=== PATIENT | female | born 1955 | race Caucasian/White ===

== ENCOUNTER 2018-11-26 20:15 | Inpatient (IN) | payer OTHER ==
[~2018-11-26] VITALS: Ht 167.6 cm; Wt 144.0 kg
[~2018-11-26 20:15] MED LIST: ATOR20TA38 PO; DULO30CA47 PO; ERGO500013 PO; INSU100I12 SQ; LISI10TA2 PO; LYRI100 PO; THY90 PO
[2018-11-26 20:23] VITALS: Ht 167.6 cm; Wt 144.0 kg
[2018-11-27] MEDS ORDERED: morphine 2 MG INJ IV PRN (02:00)
[2018-11-27] MEDS ORDERED: ONDANSETRON 4 MG INJ IV PRN (02:00)
[2018-11-27] MEDS ORDERED: NACL 0.9% 3 ML SYG IV SCH (02:00)
[2018-11-27] MEDS ORDERED: VANCOMYCIN IV PER PHARMACY XX SCH (02:30)
[2018-11-27] MEDS ORDERED: DEXTROSE 50% 50 ML SYRINGE IV PRN ×2 (02:30)
[2018-11-27] MEDS ORDERED: GLUCOSE GEL 15 GRAM TUBE PO PRN ×2 (02:30)
[2018-11-27] MEDS ORDERED: LABETALOL HCL 20MG INJ IV PRN (02:30)
[2018-11-27] MEDS ORDERED: GLUCAGON 1 MG INJ IM PRN (02:30)
[2018-11-27] MEDS ORDERED: GLUCOSE GEL 15 GRAM TUBE BUCCAL PRN (02:30)
[2018-11-27] MEDS: DEXTROSE 5%-0.45% NACL 1,000 ML IV SCH ×4 (02:31→21:59)
[2018-11-27] MEDS ORDERED: PIPER-TAZO 3.375 GM IV (PMX) 100 ML IVPB SCH (02:31)
--- NOTE | 2018-11-27 02:32 | HP ---
Date/Time of Note Date/Time of Note DATE: 11/27/18 TIME: 02:32 Assessment/Plan VTE Prophylaxis Pharmacological prophylaxis: other Lines/Catheters IV Catheter Type (from Nrs): Saline Lock Assessment/Plan Hospital Course Objective Physical exam General: Patient is laying in bed and answers questions appropriately Mentation: Patient is alert and oriented 4, Head: Normocephalic atraumatic Eyes: EOMI, pupils reactive to light Neck: Supple, nontender, midline Respiratory: Clear to auscultation bilaterally Cardiovascular: regular rate, no obvious murmurs Gastrointestinal: non-tender to palpation, bowel sounds heard. Neurological: Moves all extremities spontaneously Skin: Foot bandaged Assessment and plan Left foot bunion -Read correction surgery scheduled for tomorrow per podiatry, Dr. Calvo -IV fluid -N.p.o. for surgery Leukocytosis -Possibly reactive, -Monitor for now, start antibiotics if signs of infection arise, no fever Hypothyroidism -Patient on [place], spoke with pharmacy, IV Synthroid dose obtained Hypertension -As needed medications while n.p.o. Diabetes mellitus -Insulin sliding scale Disposition -Awaiting surgery in the a.m. per podiatry Result Diagram: 11/27/18 0130 11/27/18 0130 Results 24hrs Laboratory Tests Test 11/27/18 01:30 White Blood Count 15.8 H Red Blood Count 5.29 Hemoglobin 13.9 Hematocrit 45.2 Mean Corpuscular Volume 85.4 Mean Corpuscular Hemoglobin 26.3 L Mean Corpuscular Hemoglobin Concent 30.8 L Red Cell Distribution Width 15.7 H Platelet Count 348 Mean Platelet Volume 11.7 H Immature Granulocytes % 0.700 H Neutrophils % 66.5 Lymphocytes % 24.1 Monocytes % 5.8 Eosinophils % 2.3 Basophils % 0.6 Nucleated Red Blood Cells % 0.0 Immature Granulocytes # 0.110 H Neutrophils # 10.5 H Lymphocytes # 3.8 H Monocytes # 0.9 Eosinophils # 0.4 Basophils # 0.1 Nucleated Red Blood Cells # 0.0 Prothrombin Time 12.1 Prothrombin Time Ratio 0.9 INR International Normalized Ratio 0.89 Activated Partial Thromboplast Time 27.0 Sodium Level 141 Potassium Level 4.2 Chloride Level 102 Carbon Dioxide Level 27 Anion Gap 12 Blood Urea Nitrogen 16 Creatinine 0.61 Est Glomerular Filtrat Rate mL/min > 60 Glucose Level 160 Calcium Level 9.8 Total Bilirubin 0.5 Direct Bilirubin 0.00 Indirect Bilirubin 0.5 Aspartate Amino Transf (AST/SGOT) 19 Alanine Aminotransferase (ALT/SGPT) 7 L Alkaline Phosphatase 133 H Total Protein 7.3 Albumin 4.0 Globulin 3.30 H Albumin/Globulin Ratio 1.21 Lipase 73 HPI/ROS Admit Date/Time Admit Date/Time Hx of Present Illness Patient is a female with past medical history significant for diabetes mellitus, hypothyroidism, dyslipidemia, hypertension, bunion on the foot presents to [facility] after being sent by a engraving plate maker for surgery tomorrow morning. Patient had bunion surgery approximately 1 week ago with screws and had a normal follow-up appointment at her engraving plate maker's office, according to the patient the engraving plate maker saw that there was a slippage in 1 of the screws or other hardware and wanted her to be admitted in order for him to provide surgery early in the morning. Patient has no other acute complaints and states that the engraving plate maker stated that it did not look infected. Patient currently denies chest pain, shortness of breath, headache, nausea, vomiting, abdominal pain, leg pain PMH/Family/Social Past Medical History Medications Current Medications Dextrose/Sodium Chloride 1,000 ml @ 150 mls/hr Q6H40M IV Last administered on 11/27/18at 02:31; Admin Dose 150 MLS/HR; Start 11/27/18 at 01:59 IV Flush (NS 3 ml) 3 ml PER PROTOCOL IV ; Start 11/27/18 at 02:00 Ondansetron HCl (Zofran Inj) 4 mg Q6H PRN IV NAUSEA/VOMITING; Start 11/27/18 at 02:00 Morphine Sulfate (morphine) 2 mg Q4H PRN IV .PAIN 7-10; Start 11/27/18 at 02:00 Pantoprazole (Protonix Iv) 40 mg DAILY@06 IV ; Start 11/27/18 at 06:00 Diagnostic Test (Pha) (Accu-Chek) 1 ea 02 XX ; Start 11/28/18 at 02:00 Insulin Aspart (Novolog Insulin Pen) NOVOLOG *MILD* ALGORITHM Q6 SC ; Start 11/27/18 at 06:00 Labetalol HCl (Labetalol) 10 mg Q4 PRN IV sbp >160; Start 2/14/19 at 02:30 Miscellaneous Information 1 ea NOTE XX ; Start 11/27/18 at 02:30 Glucose (Glutose) 15 gm Q15M PRN PO DECREASED GLUCOSE; Start 11/27/18 at 02:30 Glucose (Glutose) 22.5 gm Q15M PRN PO DECREASED GLUCOSE; Start 11/27/18 at 02:30 Dextrose (D50w Syringe) 25 ml Q15M PRN IV DECREASED GLUCOSE; Start 11/27/18 at 02:30 Dextrose (D50w Syringe) 50 ml Q15M PRN IV DECREASED GLUCOSE; Start 11/27/18 at 02:30 Glucagon (Glucagen) 1 mg Q15M PRN IM DECREASED GLUCOSE; Start 11/27/18 at 02:30 Glucose (Glutose) 15 gm Q15M PRN BUCCAL DECREASED GLUCOSE; Start 11/27/18 at 02:30 Levothyroxine Sodium (Synthroid Iv) 75 mcg DAILY@06 IV ; Start 11/27/18 at 06:00 Coded Allergies: No Known Allergy (Unverified , 11/19/18) Social History Smoking Status: Current some day smoker Exam/Review of Systems Vital Signs Vitals Vital Signs Date Temp Pulse Resp B/P (MAP) Pulse Ox O2 O2 Flow FiO2 Time Delivery Rate 11/27/18 72 14 128/95 100 Room Air 01:15 (106) 11/26/18 97.3 20:23 LENIN RADFORD Nov 27, 2018 02:32
--- NOTE | 2018-11-27 02:53 | ERD ---
ER Documentation Chief Complaint Chief Complaint SENT BY JIGAR FOR LEFT FOOT SX, SX SCHEDULE TOMORROW AM HPI This is a very pleasant female sent by Dr. Oh for left foot surgery. Scheduled surgery tomorrow in the morning. Denies fevers chills nausea vomiting. She is status post previous surgery 8 days ago. This is likely s econdary to need for revision. ROS All systems reviewed and are negative except as per history of present illness. Medications Home Meds Reported Medications Insulin Lispro (Humalog Kwikpen U-100) 100 Unit/1 Ml Insuln.pen, 25 UNIT SQ AC A, EA 11/19/18 Ergocalciferol (Vitamin D2) (VITAMIN D2) 50,000 Unit Capsule, 59068 UNIT PO EVERY SATURDAY, CAP 11/19/18 Duloxetine Hcl* (Duloxetine Hcl*) 30 Mg Capsule.dr, 30 MG PO DAILY, #30 CAP 11/19/18 Pregabalin* (Lyrica*) 100 Mg Capsule, 100 MG PO BID, CAP 11/19/18 Thyroid* ([place] Thyroid*) 90 Mg Tablet, 90 MG PO DAILY, TAB 11/19/18 Atorvastatin Calcium* (Atorvastatin Calcium*) 20 Mg Tablet, 20 MG PO QHS, #30 TAB 11/19/18 Lisinopril* (Lisinopril*) 10 Mg Tablet, 10 MG PO DAILY, #30 TAB 11/19/18 Allergies Allergies: Coded Allergies: No Known Allergy (Unverified , 11/27/18) PMhx/Soc History of Surgery: Yes (r. bunionectomy,estuardo) Anesthesia Reaction: No Hx Neurological Disorder: No Hx Respiratory Disorders: No Hx Cardiac Disorders: Yes (htn,high chol) Hx Psychiatric Problems: No Hx Miscellaneous Medical Probl: No Hx Alcohol Use: No Hx Substance Use: No Hx Tobacco Use: Yes Smoking Status: Current some day smoker Physical Exam Vitals Vital Signs Date Temp Pulse Resp B/P (MAP) Pulse Ox O2 O2 Flow FiO2 Time Delivery Rate 11/27/18 72 14 128/95 100 Room Air 01:15 (106) 11/26/18 97.3 104 22 158/70 97 20:23 (99) Physical Exam Const: No acute distress Head: Atraumatic Eyes: Normal Conjunctiva ENT: Normal External Ears, Nose and Mouth. Neck: Full range of motion. No meningismus. Resp: Clear to auscultation bilaterally Cardio: Regular rate and rhythm, no murmurs Abd: Soft, non tender, non distended. Normal bowel sounds Skin: No petechiae or rashes Back: No midline or flank tenderness Ext: No cyanosis, or edema Neur: Awake and alert Psych: Normal Mood and Affect Result Diagram: 11/27/18 01311/27/18 0130 Results 24 hrs Laboratory Tests Test 11/27/18 01:30 White Blood Count 15.8 10^3/ul Red Blood Count 5.29 10^6/ul Hemoglobin 13.9 g/dl Hematocrit 45.2 % Mean Corpuscular Volume 85.4 fl Mean Corpuscular Hemoglobin 26.3 pg Mean Corpuscular Hemoglobin Concent 30.8 g/dl Red Cell Distribution Width 15.7 % Platelet Count 348 10^3/UL Mean Platelet Volume 11.7 fl Immature Granulocytes % 0.700 % Neutrophils % 66.5 % Lymphocytes % 24.1 % Monocytes % 5.8 % Eosinophils % 2.3 % Basophils % 0.6 % Nucleated Red Blood Cells % 0.0 /100WBC Immature Granulocytes # 0.110 10^3/ul Neutrophils # 10.5 10^3/ul Lymphocytes # 3.8 10^3/ul Monocytes # 0.9 10^3/ul Eosinophils # 0.4 10^3/ul Basophils # 0.1 10^3/ul Nucleated Red Blood Cells # 0.0 10^3/ul Prothrombin Time 12.1 Sec Prothrombin Time Ratio 0.9 INR International Normalized Ratio 0.89 Activated Partial Thromboplast Time 27.0 Sec Sodium Level 141 mmol/L Potassium Level 4.2 mmol/L Chloride Level 102 mmol/L Carbon Dioxide Level 27 mmol/L Anion Gap 12 Blood Urea Nitrogen 16 mg/dl Creatinine 0.61 mg/dl Est Glomerular Filtrat Rate mL/min > 60 mL/min Glucose Level 160 mg/dl Calcium Level 9.8 mg/dl Total Bilirubin 0.5 mg/dl Direct Bilirubin 0.00 mg/dl Indirect Bilirubin 0.5 mg/dl Aspartate Amino Transf (AST/SGOT) 19 IU/L Alanine Aminotransferase (ALT/SGPT) 7 IU/L Alkaline Phosphatase 133 IU/L Total Protein 7.3 g/dl Albumin 4.0 g/dl Globulin 3.30 g/dl Albumin/Globulin Ratio 1.21 Lipase 73 U/L Current Medications Medications Dose Sig/Crystal Start Time Status Last (Trade) Ordered Route PRN Stop Time Admin Dose Reason Admin 1,000 ml @ Q6H40M IV 11/27/18 11/27/18 Dextrose/Sodi 150 mls/hr 01:59 02:31 um Chloride IV Flush 3 ml PER 11/27/18 (NS 3 ml) PROTOCOL IV 02:00 Ondansetron 4 mg Q6H PRN 11/27/18 HCl (Zofran IV 02:00 Inj) NAUSEA/VOMITI NG Morphine 2 mg Q4H PRN 11/27/18 Sulfate IV .PAIN 02:00 (morphine) 7-10 40 mg DAILY@06 11/27/18 Pantoprazole IV 06:00 (Protonix Iv) Discontinue ONCE ONCE 11/27/18 DC Miscellaneous current oral XX 02:30 sulfonylur... 11/27/18 02:31 Information (* Miscellaneous Pharmacy Order) Diagnostic 1 ea 02 XX 11/28/18 Test (Pha) 02:00 (Accu-Chek) ONCE ONCE 11/27/18 DC Miscellaneous HYPOGLYCEMIA XX 02:30 PROTOCOL 11/27/18 02:31 Information w... (* Miscellaneous Pharmacy Order) Insulin NOVOLOG Q6 SC 11/27/18 Aspart *MILD* 06:00 (Novolog ALGORITHM Insulin Pen) Discontinue ONCE ONCE 11/27/18 DC Miscellaneous all previ... XX 02:30 11/27/18 02:31 Information (* Miscellaneous Pharmacy Order) Labetalol 10 mg Q4 PRN IV 11/27/18 HCl sbp >160 02:30 (Labetalol) Piperacillin 100 ml @ Q6 IVPB 11/27/18 DC Sod/ 200 mls/hr 02:31 Tazobactam 11/27/18 02:31 Sod Vancomycin VANCOMYCIN PER 11/27/18 DC HCl (Vanco PER PHARMACY PROTOCOL XX 02:30 Iv Per 11/27/18 02:30 Pharmacy) 1 ea NOTE XX 11/27/18 Miscellaneous 02:30 Information Glucose 15 gm Q15M PRN 11/27/18 (Glutose) PO DECREASED 02:30 GLUCOSE Glucose 22.5 gm Q15M PRN 11/27/18 (Glutose) PO DECREASED 02:30 GLUCOSE Dextrose 25 ml Q15M PRN 11/27/18 (D50w IV DECREASED 02:30 Syringe) GLUCOSE Dextrose 50 ml Q15M PRN 11/27/18 (D50w IV DECREASED 02:30 Syringe) GLUCOSE Glucagon 1 mg Q15M PRN 11/27/18 (Glucagen) IM DECREASED 02:30 GLUCOSE Glucose 15 gm Q15M PRN 11/27/18 (Glutose) BUCCAL 02:30 DECREASED GLUCOSE Vancomycin 500 ml @ ONCE ONCE 11/27/18 DC HCl 2 125 mls/hr IVPB 03:30 gm/Sodium 11/27/18 03:30 Chloride 75 mcg DAILY@06 11/27/18 Levothyroxine IV 06:00 Sodium (Synthroid Iv) Procedures/MDM Medical decision making: Patient here for possible surgical reevaluation of previous foot surgery. Admitted to hospitalist. Departure Diagnosis: Primary Impression: Foot pain Laterality: unspecified laterality Qualified Codes: M79.673 - Pain in unspecified foot Condition: Fair LUZ ELENA NAVARRO Nov 27, 2018 02:53
[2018-11-27 03:00] VITALS: BP 122/58; PULSE 76; RESP 19
[2018-11-27] MEDS ORDERED: VANCOMYCIN HCL 2 GM in SOD CHLORIDE 0.9% 500 ML IVPB ONE (03:30)
[2018-11-27] MEDS ORDERED: PANTOPRAZOLE 40 MG INJ IV SCH (06:00)
[2018-11-27] MEDS: LEVOTHYROXINE 100 MCG VIAL IV SCH (06:36)
[2018-11-27] MEDS: INSULIN ASPART [NOVOLOG] 3 ML PEN SC SCH ×3 (06:42→17:51)
[2018-11-27 07:33] VITALS: BP 146/81; PULSE 75; RESP 18
[2018-11-27 14:49] VITALS: BP 155/95; PULSE 82; RESP 20
--- NOTE | 2018-11-27 18:36 | PN ---
Date/Time of Note Date/Time of Note DATE: 11/27/18 TIME: 18:31 Assessment/Plan VTE Prophylaxis Risk score (from Ns)>0 risk: 5 SCD applied (from Ns): Yes SCD contraindicated: low risk/ambulating Pharmacological prophylaxis: NA/contraindicated Pharm contraindication: surgical contra Lines/Catheters IV [facility] Peripheral IV Assessment/Plan Hospital Course Assessment and plan 1. Left foot cellulitis abscess? Stable cont antibiotics 2. Left foot bunion, apparently the bones have shifted. For repair/hardware replacement soon 3. Type 2 diabetes metabolic syndrome 4. Hypertension 5. Dyslipidemia 6. Tobacco abuse status post counseling offered patch 7. PAD? 8. Diabetic neuropathy 9. ELVI risk? 10. Obesity 11. Nonadherence Subjective: No events noted Objective: Vital signs stable Physical exam No pallor Regular Clear Benign Left foot c/d/i Result Diagram: 11/27/1812911/27/18129 Results 24hrs Laboratory Tests Test 11/27/18 01:30 11/27/18 06:30 11/27/18 12:11 11/27/18 17:48 White Blood Count 15.8 H Red Blood Count 5.29 Hemoglobin 13.9 Hematocrit 45.2 Mean Corpuscular 85.4 Volume Mean Corpuscular 26.3 L Hemoglobin Mean Corpuscular 30.8 L Hemoglobin Concent Red Cell 15.7 H Distribution Width Platelet Count 348 Mean Platelet Volume 11.7 H Immature 0.700 H Granulocytes % Neutrophils % 66.5 Lymphocytes % 24.1 Monocytes % 5.8 Eosinophils % 2.3 Basophils % 0.6 Nucleated Red Blood 0.0 Cells % Immature 0.110 H Granulocytes # Neutrophils # 10.5 H Lymphocytes # 3.8 H Monocytes # 0.9 Eosinophils # 0.4 Basophils # 0.1 Nucleated Red Blood 0.0 Cells # Prothrombin Time 12.1 Prothrombin Time 0.9 Ratio INR International 0.89 Normalized Ratio Activated 27.0 Partial Thromboplast Time Sodium Level 141 Potassium Level 4.2 Chloride Level 102 Carbon Dioxide Level 27 Anion Gap 12 Blood Urea Nitrogen 16 Creatinine 0.61 Est Glomerular > 60 Filtrat Rate mL/min Glucose Level 160 Calcium Level 9.8 Total Bilirubin 0.5 Direct Bilirubin 0.00 Indirect Bilirubin 0.5 Aspartate Amino 19 Transf (AST/SGOT) Alanine 7 L Aminotransferase (AL T/SGPT) Alkaline Phosphatase 133 H Total Protein 7.3 Albumin 4.0 Globulin 3.30 H Albumin/Globulin 1.21 Ratio Lipase 73 Bedside Glucose 193 206 167 Exam/Review of Systems Exam Vitals Vital Signs Date Temp Pulse Resp B/P (MAP) Pulse Ox O2 O2 Flow FiO2 Time Delivery Rate 11/27/18 98.6 82 20 155/95 94 Room Air 14:49 (115) Results Results 24hrs Laboratory Tests Test 11/27/18 01:30 11/27/18 06:30 11/27/18 12:11 11/27/18 17:48 White Blood Count 15.8 H Red Blood Count 5.29 Hemoglobin 13.9 Hematocrit 45.2 Mean Corpuscular 85.4 Volume Mean Corpuscular 26.3 L Hemoglobin Mean Corpuscular 30.8 L Hemoglobin Concent Red Cell 15.7 H Distribution Width Platelet Count 348 Mean Platelet Volume 11.7 H Immature 0.700 H Granulocytes % Neutrophils % 66.5 Lymphocytes % 24.1 Monocytes % 5.8 Eosinophils % 2.3 Basophils % 0.6 Nucleated Red Blood 0.0 Cells % Immature 0.110 H Granulocytes # Neutrophils # 10.5 H Lymphocytes # 3.8 H Monocytes # 0.9 Eosinophils # 0.4 Basophils # 0.1 Nucleated Red Blood 0.0 Cells # Prothrombin Time 12.1 Prothrombin Time 0.9 Ratio INR International 0.89 Normalized Ratio Activated 27.0 Partial Thromboplast Time Sodium Level 141 Potassium Level 4.2 Chloride Level 102 Carbon Dioxide Level 27 Anion Gap 12 Blood Urea Nitrogen 16 Creatinine 0.61 Est Glomerular > 60 Filtrat Rate mL/min Glucose Level 160 Calcium Level 9.8 Total Bilirubin 0.5 Direct Bilirubin 0.00 Indirect Bilirubin 0.5 Aspartate Amino 19 Transf (AST/SGOT) Alanine 7 L Aminotransferase (AL T/SGPT) Alkaline Phosphatase 133 H Total Protein 7.3 Albumin 4.0 Globulin 3.30 H Albumin/Globulin 1.21 Ratio Lipase 73 Bedside Glucose 193 206 167 Medications Medication Current Medications Dextrose/Sodium Chloride 1,000 ml @ 150 mls/hr Q6H40M IV Last administered on 11/27/18at 09:35; Admin Dose 150 MLS/HR; Start 11/27/18 at 01:59 IV Flush (NS 3 ml) 3 ml PER PROTOCOL IV ; Start 11/27/18 at 02:00 Ondansetron HCl (Zofran Inj) 4 mg Q6H PRN IV NAUSEA/VOMITING; Start 11/27/18 at 02:00 Morphine Sulfate (morphine) 2 mg Q4H PRN IV .PAIN 7-10; Start 11/27/18 at 02:00 Pantoprazole (Protonix Iv) 40 mg DAILY@06 IV Last administered on 11/27/18at 06:36; Admin Dose 40 MG; Start 11/27/18 at 06:00 Diagnostic Test (Pha) (Accu-Chek) 1 ea 02 XX ; Start 11/28/18 at 02:00 Insulin Aspart (Novolog Insulin Pen) NOVOLOG *MILD* ALGORITHM Q6 SC Last administered on 11/27/18at 17:51; Admin Dose 1 UNIT; Start 11/27/18 at 06:00 Miscellaneous Information 1 ea NOTE XX ; Start 11/27/18 at 02:30 Glucose (Glutose) 15 gm Q15M PRN PO DECREASED GLUCOSE; Start 11/27/18 at 02:30 Glucose (Glutose) 22.5 gm Q15M PRN PO DECREASED GLUCOSE; Start 11/27/18 at 02:30 Dextrose (D50w Syringe) 25 ml Q15M PRN IV DECREASED GLUCOSE; Start 11/27/18 at 02:30 Dextrose (D50w Syringe) 50 ml Q15M PRN IV DECREASED GLUCOSE; Start 11/27/18 at 02:30 Glucagon (Glucagen) 1 mg Q15M PRN IM DECREASED GLUCOSE; Start 11/27/18 at 02:30 Glucose (Glutose) 15 gm Q15M PRN BUCCAL DECREASED GLUCOSE; Start 11/27/18 at 02:30 Levothyroxine Sodium (Synthroid Iv) 75 mcg DAILY@06 IV Last administered on 11/27/18at 06:36; Admin Dose 75 MCG; Start 11/27/18 at 06:00 LOC CONCEPCION MD Nov 27, 2018 18:36
[2018-11-27 20:30] VITALS: BP 168/92; PULSE 76; RESP 19
[2018-11-27] MEDS: FAMOTIDINE 20 MG TAB PO SCH (21:15)
[2018-11-27] MEDS: LACTOBACILLUS RHAMNOSUS CAP PO SCH (21:15)
[2018-11-27] MEDS: PIPER-TAZO 3.375 GM IV (PMX) 100 ML IVPB SCH (21:16)
--- NOTE | 2018-11-27 22:14 | CONS ---
Consultation Date/Type/Reason Admit Date/Time Date of Consultation: Nov 27, 2018 Date/Time of Note DATE: 11/27/18 TIME: 22:14 Past Medical History Home Meds Reported Medications Insulin Lispro (Humalog Kwikpen U-100) 100 Unit/1 Ml Insuln.pen, 25 UNIT SQ AC A, EA 11/19/18 Ergocalciferol (Vitamin D2) (VITAMIN D2) 50,000 Unit Capsule, 47751 UNIT PO EVERY SATURDAY, CAP 11/19/18 Duloxetine Hcl* (Duloxetine Hcl*) 30 Mg Capsule.dr, 30 MG PO DAILY, #30 CAP 11/19/18 Pregabalin* (Lyrica*) 100 Mg Capsule, 100 MG PO BID, CAP 11/19/18 Thyroid* ([place] Thyroid*) 90 Mg Tablet, 90 MG PO DAILY, TAB 11/19/18 Atorvastatin Calcium* (Atorvastatin Calcium*) 20 Mg Tablet, 20 MG PO QHS, #30 TAB 11/19/18 Lisinopril* (Lisinopril*) 10 Mg Tablet, 10 MG PO DAILY, #30 TAB 11/19/18 Medications Current Medications Dextrose/Sodium Chloride 1,000 ml @ 150 mls/hr Q6H40M IV Last administered on 11/27/18at 09:35; Admin Dose 150 MLS/HR; Start 11/27/18 at 01:59 IV Flush (NS 3 ml) 3 ml PER PROTOCOL IV ; Start 11/27/18 at 02:00 Ondansetron HCl (Zofran Inj) 4 mg Q6H PRN IV NAUSEA/VOMITING; Start 11/27/18 at 02:00 Morphine Sulfate (morphine) 2 mg Q4H PRN IV .PAIN 7-10 Last administered on 11/27/18at 21:21; Admin Dose 2 MG; Start 11/27/18 at 02:00 Diagnostic Test (Pha) (Accu-Chek) 1 ea 02 XX ; Start 11/28/18 at 02:00 Insulin Aspart (Novolog Insulin Pen) NOVOLOG *MILD* ALGORITHM Q6 SC Last administered on 11/27/18at 17:51; Admin Dose 1 UNIT; Start 11/27/18 at 06:00 Miscellaneous Information 1 ea NOTE XX ; Start 11/27/18 at 02:30 Glucose (Glutose) 15 gm Q15M PRN PO DECREASED GLUCOSE; Start 11/27/18 at 02:30 Glucose (Glutose) 22.5 gm Q15M PRN PO DECREASED GLUCOSE; Start 11/27/18 at 02:30 Dextrose (D50w Syringe) 25 ml Q15M PRN IV DECREASED GLUCOSE; Start 11/27/18 at 02:30 Dextrose (D50w Syringe) 50 ml Q15M PRN IV DECREASED GLUCOSE; Start 11/27/18 at 02:30 Glucagon (Glucagen) 1 mg Q15M PRN IM DECREASED GLUCOSE; Start 11/27/18 at 02:30 Glucose (Glutose) 15 gm Q15M PRN BUCCAL DECREASED GLUCOSE; Start 11/27/18 at 02:30 Levothyroxine Sodium (Synthroid Iv) 75 mcg DAILY@06 IV Last administered on 11/27/18at 06:36; Admin Dose 75 MCG; Start 11/27/18 at 06:00 Piperacillin Sod/ Tazobactam Sod 100 ml @ 200 mls/hr Q8 IVPB Last administered on 11/27/18at 21:16; Admin Dose 200 MLS/HR; Start 11/27/18 at 22:00 Enoxaparin Sodium (Lovenox) 40 mg DAILY SC ; Start 11/28/18 at 09:00 Famotidine (Pepcid) 20 mg HS PO Last administered on 11/27/18at 21:15; Admin Dose 20 MG; Start 11/27/18 at 21:00 Lactobacillus Acidophilus/ Rhamnosus (Culturelle) 1 cap BID PO Last administered on 11/27/18at 21:15; Admin Dose 1 CAP; Start 11/27/18 at 21:00 Atorvastatin Calcium (Lipitor) 20 mg QHS PO ; Start 11/28/18 at 21:00 Duloxetine HCl (Cymbalta) 30 mg DAILY PO ; Start 11/28/18 at 09:00 Pregabalin (Lyrica) 100 mg DAILY PO ; Start 11/28/18 at 09:00 Lisinopril (Zestril) 10 mg DAILY PO ; Start 11/27/18 at 22:30 Allergies: Coded Allergies: No Known Allergy (Unverified , 11/27/18) Social History Smoking Status: Current some day smoker Exam/Review of Systems Exam Vitals Vital Signs Date Temp Pulse Resp B/P (MAP) Pulse Ox O2 O2 Flow FiO2 Time Delivery Rate 11/27/18 99.0 76 19 168/92 95 20:30 (117) 11/27/18 Room Air 14:49 Results Result Diagram: 11/27/18 0130 11/27/18 0130 Results 24hrs Laboratory Tests Test 11/27/18 01:30 11/27/18 06:30 11/27/18 12:11 11/27/18 17:48 White Blood Count 15.8 H Red Blood Count 5.29 Hemoglobin 13.9 Hematocrit 45.2 Mean Corpuscular 85.4 Volume Mean Corpuscular 26.3 L Hemoglobin Mean Corpuscular 30.8 L Hemoglobin Concent Red Cell 15.7 H Distribution Width Platelet Count 348 Mean Platelet Volume 11.7 H Immature 0.700 H Granulocytes % Neutrophils % 66.5 Lymphocytes % 24.1 Monocytes % 5.8 Eosinophils % 2.3 Basophils % 0.6 Nucleated Red Blood 0.0 Cells % Immature 0.110 H Granulocytes # Neutrophils # 10.5 H Lymphocytes # 3.8 H Monocytes # 0.9 Eosinophils # 0.4 Basophils # 0.1 Nucleated Red Blood 0.0 Cells # Prothrombin Time 12.1 Prothrombin Time 0.9 Ratio INR International 0.89 Normalized Ratio Activated 27.0 Partial Thromboplast Time Sodium Level 141 Potassium Level 4.2 Chloride Level 102 Carbon Dioxide Level 27 Anion Gap 12 Blood Urea Nitrogen 16 Creatinine 0.61 Est Glomerular > 60 Filtrat Rate mL/min Glucose Level 160 Calcium Level 9.8 Total Bilirubin 0.5 Direct Bilirubin 0.00 Indirect Bilirubin 0.5 Aspartate Amino 19 Transf (AST/SGOT) Alanine 7 L Aminotransferase (AL T/SGPT) Alkaline Phosphatase 133 H Total Protein 7.3 Albumin 4.0 Globulin 3.30 H Albumin/Globulin 1.21 Ratio Lipase 73 Bedside Glucose 193 206 167 Medications Medication Current Medications Dextrose/Sodium Chloride 1,000 ml @ 150 mls/hr Q6H40M IV Last administered on 11/27/18at 09:35; Admin Dose 150 MLS/HR; Start 11/27/18 at 01:59 IV Flush (NS 3 ml) 3 ml PER PROTOCOL IV ; Start 11/27/18 at 02:00 Ondansetron HCl (Zofran Inj) 4 mg Q6H PRN IV NAUSEA/VOMITING; Start 11/27/18 at 02:00 Morphine Sulfate (morphine) 2 mg Q4H PRN IV .PAIN 7-10 Last administered on 11/27/18at 21:21; Admin Dose 2 MG; Start 11/27/18 at 02:00 Diagnostic Test (Pha) (Accu-Chek) 1 ea 02 XX ; Start 11/28/18 at 02:00 Insulin Aspart (Novolog Insulin Pen) NOVOLOG *MILD* ALGORITHM Q6 SC Last administered on 11/27/18at 17:51; Admin Dose 1 UNIT; Start 11/27/18 at 06:00 Miscellaneous Information 1 ea NOTE XX ; Start 11/27/18 at 02:30 Glucose (Glutose) 15 gm Q15M PRN PO DECREASED GLUCOSE; Start 11/27/18 at 02:30 Glucose (Glutose) 22.5 gm Q15M PRN PO DECREASED GLUCOSE; Start 11/27/18 at 02:30 Dextrose (D50w Syringe) 25 ml Q15M PRN IV DECREASED GLUCOSE; Start 11/27/18 at 02:30 Dextrose (D50w Syringe) 50 ml Q15M PRN IV DECREASED GLUCOSE; Start 11/27/18 at 02:30 Glucagon (Glucagen) 1 mg Q15M PRN IM DECREASED GLUCOSE; Start 11/27/18 at 02:30 Glucose (Glutose) 15 gm Q15M PRN BUCCAL DECREASED GLUCOSE; Start 11/27/18 at 02:30 Levothyroxine Sodium (Synthroid Iv) 75 mcg DAILY@06 IV Last administered on 11/27/18at 06:36; Admin Dose 75 MCG; Start 11/27/18 at 06:00 Piperacillin Sod/ Tazobactam Sod 100 ml @ 200 mls/hr Q8 IVPB Last administered on 11/27/18at 21:16; Admin Dose 200 MLS/HR; Start 11/27/18 at 22:00 Enoxaparin Sodium (Lovenox) 40 mg DAILY SC ; Start 11/28/18 at 09:00 Famotidine (Pepcid) 20 mg HS PO Last administered on 11/27/18at 21:15; Admin Dose 20 MG; Start 11/27/18 at 21:00 Lactobacillus Acidophilus/ Rhamnosus (Culturelle) 1 cap BID PO Last administered on 11/27/18at 21:15; Admin Dose 1 CAP; Start 11/27/18 at 21:00 Atorvastatin Calcium (Lipitor) 20 mg QHS PO ; Start 11/28/18 at 21:00 Duloxetine HCl (Cymbalta) 30 mg DAILY PO ; Start 11/28/18 at 09:00 Pregabalin (Lyrica) 100 mg DAILY PO ; Start 11/28/18 at 09:00 Lisinopril (Zestril) 10 mg DAILY PO ; Start 11/27/18 at 22:30 DEANNA KIMBALL DPM Nov 27, 2018 22:14
[2018-11-27] MEDS: LISINOPRIL 10 MG TAB PO SCH (22:23)
[2018-11-28] VITALS (18 sets, daily range): BP systolic 81–180; BP diastolic 54–72; PULSE 61–78; RESP 12–21
[2018-11-28] MEDS: INSULIN ASPART [NOVOLOG] 3 ML PEN SC SCH ×6 (00:04→21:43)
[2018-11-28] MEDS ORDERED: hydrALAzine 20 MG INJ IV PRN ×2 (02:00→16:00)
[2018-11-28] MEDS: ACCU-CHEK XX SCH (02:00)
[2018-11-28] MEDS ORDERED: HYDROCORTISONE 2.5% 20 GM CR TOP PRN (02:00)
[2018-11-28] MEDS: DIPHENHYDRAMINE 25 MG CAP PO PRN ×3 (04:46→21:24)
[2018-11-28] MEDS: PIPER-TAZO 3.375 GM IV (PMX) 100 ML IVPB SCH ×3 (05:54→21:36)
[2018-11-28] MEDS: LEVOTHYROXINE 100 MCG VIAL IV SCH (05:54)
[2018-11-28] MEDS: DEXTROSE 5%-0.45% NACL 1,000 ML IV SCH ×2 (05:55→11:19)
[2018-11-28] MEDS ORDERED: CEFAZOLIN 1 GM INJ ONE ×2 (07:00→16:05)
[2018-11-28] MEDS: LISINOPRIL 10 MG TAB PO SCH (08:59)
[2018-11-28] MEDS: DULOXETINE 30 MG CAP DR PO SCH (08:59)
[2018-11-28] MEDS: LACTOBACILLUS RHAMNOSUS CAP PO SCH ×2 (08:59→21:24)
[2018-11-28] MEDS: PREGABALIN 100 MG CAP PO SCH (09:00)
[2018-11-28] MEDS ORDERED: LISINOPRIL 10 MG TAB PO SCH (09:00)
[2018-11-28] MEDS: ENOXAPARIN 40 MG/0.4 ML SYG SC SCH (09:00)
--- NOTE | 2018-11-28 13:29 | PN ---
Date/Time of Note Date/Time of Note DATE: 11/28/18 TIME: 13:28 Assessment/Plan VTE Prophylaxis Risk score (from Nsg)>0 risk: 3 SCD applied (from Ns): Yes SCD contraindicated: low risk/ambulating Pharmacological prophylaxis: LMWH Lines/Catheters IV Catheter Type (from Nrs): Peripheral IV Assessment/Plan Hospital Course A/P 1. Left foot cellulitis/ abscess, has hardward, probable too early for OM. Stable cont antibiotics 2. Left foot bunion, apparently the bones have shifted. For repair/hardware replacement soon 3. Type 2 diabetes [8.9]/ metabolic syndrome 4. Hypertension 5. Dyslipidemia 6. Tobacco abuse sp counseling, offered patch 7. PAD? 8. Diabetic neuropathy 9. ELVI risk 10. Obesity 11. Nonadherence 12. Marijuana S: 11/27: No events noted 11/28: no distress; no cp/ dyspnea O: Vital signs stable PE No pallor Regular Clear Benign Left foot c/d/i Result Diagram: 11/28/18 0449 11/28/18 0449 Results 24hrs Laboratory Tests Test 11/27/18 17:48 11/27/18 23:56 11/28/18 04:49 11/28/18 05:53 Bedside Glucose 167 183 199 White Blood Count 12.4 #H Red Blood Count 5.48 H Hemoglobin 14.5 Hematocrit 46.4 Mean Corpuscular 84.7 Volume Mean Corpuscular 26.5 L Hemoglobin Mean Corpuscular 31.3 L Hemoglobin Concent Red Cell 15.7 H Distribution Width Platelet Count 337 Mean Platelet Volume 11.9 H Immature 0.600 H Granulocytes % Neutrophils % 64.3 Lymphocytes % 24.7 Monocytes % 6.0 Eosinophils % 3.8 Basophils % 0.6 Nucleated Red Blood 0.0 Cells % Immature 0.070 H Granulocytes # Neutrophils # 7.9 H Lymphocytes # 3.1 H Monocytes # 0.7 Eosinophils # 0.5 Basophils # 0.1 Nucleated Red Blood 0.0 Cells # Erythrocyte 27.0 Sedimentation Rate Sodium Level 141 Potassium Level 3.8 Chloride Level 104 Carbon Dioxide Level 27 Anion Gap 10 Blood Urea Nitrogen 10 Creatinine 0.56 Est Glomerular > 60 Filtrat Rate mL/min Glucose Level 163 Hemoglobin A1c 8.9 H Calcium Level 9.4 C-Reactive Protein 4.9 H Thyroid Stimulating 5.530 H Hormone (TSH) Exam/Review of Systems Exam Vitals Vital Signs Date Temp Pulse Resp B/P (MAP) Pulse Ox O2 O2 Flow FiO2 Time Delivery Rate 11/28/18 98.0 61 18 147/68 97 Room Air 08:24 (94) Intake and Output 11/27/18 11/27/18 11/28/18 1515:00 23:00 07:00 IntakeIntake Total 1000 ml 1520 ml 220 ml OutputOutput Total 200 ml BalanceBalance 800 ml 1520 ml 220 ml Results Results 24hrs Laboratory Tests Test 11/27/18 17:48 11/27/18 23:56 11/28/18 04:49 11/28/18 05:53 Bedside Glucose 167 183 199 White Blood Count 12.4 #H Red Blood Count 5.48 H Hemoglobin 14.5 Hematocrit 46.4 Mean Corpuscular 84.7 Volume Mean Corpuscular 26.5 L Hemoglobin Mean Corpuscular 31.3 L Hemoglobin Concent Red Cell 15.7 H Distribution Width Platelet Count 337 Mean Platelet Volume 11.9 H Immature 0.600 H Granulocytes % Neutrophils % 64.3 Lymphocytes % 24.7 Monocytes % 6.0 Eosinophils % 3.8 Basophils % 0.6 Nucleated Red Blood 0.0 Cells % Immature 0.070 H Granulocytes # Neutrophils # 7.9 H Lymphocytes # 3.1 H Monocytes # 0.7 Eosinophils # 0.5 Basophils # 0.1 Nucleated Red Blood 0.0 Cells # Erythrocyte 27.0 Sedimentation Rate Sodium Level 141 Potassium Level 3.8 Chloride Level 104 Carbon Dioxide Level 27 Anion Gap 10 Blood Urea Nitrogen 10 Creatinine 0.56 Est Glomerular > 60 Filtrat Rate mL/min Glucose Level 163 Hemoglobin A1c 8.9 H Calcium Level 9.4 C-Reactive Protein 4.9 H Thyroid Stimulating 5.530 H Hormone (TSH) Medications Medication Current Medications Dextrose/Sodium Chloride 1,000 ml @ 150 mls/hr Q6H40M IV Last administered on 11/28/18at 05:55; Admin Dose 150 MLS/HR; Start 11/27/18 at 01:59 IV Flush (NS 3 ml) 3 ml PER PROTOCOL IV ; Start 11/27/18 at 02:00 Ondansetron HCl (Zofran Inj) 4 mg Q6H PRN IV NAUSEA/VOMITING; Start 11/27/18 at 02:00 Morphine Sulfate (morphine) 2 mg Q4H PRN IV .PAIN 7-10 Last administered on 11/27/18at 21:21; Admin Dose 2 MG; Start 11/27/18 at 02:00 Diagnostic Test (Pha) (Accu-Chek) 1 ea 02 XX ; Start 11/28/18 at 02:00 Insulin Aspart (Novolog Insulin Pen) NOVOLOG *MILD* ALGORITHM Q6 SC Last administered on 11/28/18at 06:21; Admin Dose 1 UNIT; Start 11/27/18 at 06:00 Miscellaneous Information 1 ea NOTE XX ; Start 11/27/18 at 02:30 Glucose (Glutose) 15 gm Q15M PRN PO DECREASED GLUCOSE; Start 11/27/18 at 02:30 Glucose (Glutose) 22.5 gm Q15M PRN PO DECREASED GLUCOSE; Start 11/27/18 at 02:30 Dextrose (D50w Syringe) 25 ml Q15M PRN IV DECREASED GLUCOSE; Start 11/27/18 at 02:30 Dextrose (D50w Syringe) 50 ml Q15M PRN IV DECREASED GLUCOSE; Start 11/27/18 at 02:30 Glucagon (Glucagen) 1 mg Q15M PRN IM DECREASED GLUCOSE; Start 11/27/18 at 02:30 Glucose (Glutose) 15 gm Q15M PRN BUCCAL DECREASED GLUCOSE; Start 11/27/18 at 02:30 Levothyroxine Sodium (Synthroid Iv) 75 mcg DAILY@06 IV Last administered on 11/28/18at 05:54; Admin Dose 75 MCG; Start 11/27/18 at 06:00 Piperacillin Sod/ Tazobactam Sod 100 ml @ 200 mls/hr Q8 IVPB Last administered on 11/28/18at 05:54; Admin Dose 200 MLS/HR; Start 11/27/18 at 22:00 Enoxaparin Sodium (Lovenox) 40 mg DAILY SC ; Start 11/28/18 at 09:00 Famotidine (Pepcid) 20 mg HS PO Last administered on 11/27/18at 21:15; Admin Dose 20 MG; Start 11/27/18 at 21:00 Lactobacillus Acidophilus/ Rhamnosus (Culturelle) 1 cap BID PO Last administered on 11/28/18at 08:59; Admin Dose 1 CAP; Start 11/27/18 at 21:00 Atorvastatin Calcium (Lipitor) 20 mg QHS PO ; Start 11/28/18 at 21:00 Duloxetine HCl (Cymbalta) 30 mg DAILY PO Last administered on 11/28/18at 08:59; Admin Dose 30 MG; Start 11/28/18 at 09:00 Pregabalin (Lyrica) 100 mg DAILY PO Last administered on 11/28/18at 09:00; Admin Dose 100 MG; Start 11/28/18 at 09:00 Lisinopril (Zestril) 10 mg DAILY PO Last administered on 11/28/18at 08:59; Admin Dose 10 MG; Start 11/27/18 at 22:30 Hydralazine HCl (Apresoline) 10 mg Q4H PRN IV sbp >160mmHg; Start 11/28/18 at 02:00 Hydrocortisone (Hydrocortisone 2.5% Cr) 1 applic BID PRN TOP itching; Start 11/28/18 at 02:00 Diphenhydramine HCl (Benadryl) 25 mg Q6H PRN PO ITCHING Last administered on 11/28/18at 10:56; Admin Dose 25 MG; Start 11/28/18 at 04:00 LOC CONCEPCION MD Nov 28, 2018 13:29
[2018-11-28] MEDS: METOPROLOL (XL) 25 MG TAB PO SCH (14:29)
--- NOTE | 2018-11-28 15:22 | HPN ---
Date/Time of Note Date/Time of Note DATE: 11/28/18 TIME: 15:22 Interval H&P Admission Note Pt. seen H&P reviewed: No system changes DEANNA KIMBALL DPM Nov 28, 2018 15:22
--- NOTE | 2018-11-28 15:22 | PN ---
Date/Time of Note Date/Time of Note DATE: 11/28/18 TIME: 15:22 Assessment/Plan Lines/Catheters IV C[facility]ter Type (from [facility]): Peripheral IV Exam/Review of Systems Vital Signs Vitals Vital Signs Date Temp Pulse Resp B/P (MAP) Pulse Ox O2 O2 Flow FiO2 Time Delivery Rate 11/28/18 98.4 65 18 130/60 90 14:32 (83) 11/28/18 Room Air 08:24 Intake and Output 11/27/18 11/27/18 11/28/18 1515:00 23:00 07:00 IntakeIntake Total 1000 ml 1520 ml 220 ml OutputOutput Total 200 ml BalanceBalance 800 ml 1520 ml 220 ml Results Result Diagram: 11/28/18 0449 11/28/18 0449 DEANNA KIMBALL DPM Nov 28, 2018 15:22
--- NOTE | 2018-11-28 15:41 | PREAC ---
Date/Time of Note Date/Time of Note DATE: 11/28/18 TIME: 15:40 Anesthesia Eval and Record Evaluation Time Pre-Procedure Interview DATE: 11/28/18 TIME: 15:40 Age 62 Sex female NPO: 8 hrs Preoperative diagnosis infected foot Planned procedure I&D of foot Past Medical History Past Medical History: Includes Cardio: HTN, Dyslipidemia Endo: Diabetes Pulm: Sleep Apnea GI: Morbid obesity Surgery & Anesthesia Issues No known issue Meds Anticoagulation: No Beta Saloni within 24 hr: No Reason Beta Saloni not given: Pt. not on B-Saloni Reported Medications Insulin Lispro (Humalog Kwikpen U-100) 100 Unit/1 Ml Insuln.pen, 25 UNIT SQ AC A, EA 11/19/18 Ergocalciferol (Vitamin D2) (VITAMIN D2) 50,000 Unit Capsule, 40649 UNIT PO EVERY SATURDAY, CAP 11/19/18 Duloxetine Hcl* (Duloxetine Hcl*) 30 Mg Capsule.dr, 30 MG PO DAILY, #30 CAP 11/19/18 Pregabalin* (Lyrica*) 100 Mg Capsule, 100 MG PO BID, CAP 11/19/18 Thyroid* ([place] Thyroid*) 90 Mg Tablet, 90 MG PO DAILY, TAB 11/19/18 Atorvastatin Calcium* (Atorvastatin Calcium*) 20 Mg Tablet, 20 MG PO QHS, #30 TAB 11/19/18 Lisinopril* (Lisinopril*) 10 Mg Tablet, 10 MG PO DAILY, #30 TAB 11/19/18 Current Medications Dextrose/Sodium Chloride 1,000 ml @ 50 mls/hr Q20H IV Last administered on 11/28/18at 05:55; Admin Dose 150 MLS/HR; Start 11/27/18 at 01:59 IV Flush (NS 3 ml) 3 ml PER PROTOCOL IV ; Start 11/27/18 at 02:00 Ondansetron HCl (Zofran Inj) 4 mg Q6H PRN IV NAUSEA/VOMITING; Start 11/27/18 at 02:00 Morphine Sulfate (morphine) 2 mg Q4H PRN IV .PAIN 7-10 Last administered on at 21:21; Admin Dose 2 MG; Start 11/27/18 at 02:00 Diagnostic Test (Pha) (Accu-Chek) 1 ea 02 XX ; Start 11/28/18 at 02:00 Insulin Aspart (Novolog Insulin Pen) NOVOLOG *MILD* ALGORITHM Q6 SC Last administered on 11/28/18at 13:46; Admin Dose 2 UNIT; Start 11/27/18 at 06:00 Miscellaneous Information 1 ea NOTE XX ; Start 11/27/18 at 02:30 Glucose (Glutose) 15 gm Q15M PRN PO DECREASED GLUCOSE; Start 11/27/18 at 02:30 Glucose (Glutose) 22.5 gm Q15M PRN PO DECREASED GLUCOSE; Start 11/27/18 at 0 2:30 Dextrose (D50w Syringe) 25 ml Q15M PRN IV DECREASED GLUCOSE; Start 11/27/18 at 02:30 Dextrose (D50w Syringe) 50 ml Q15M PRN IV DECREASED GLUCOSE; Start 11/27/18 at 02:30 Glucagon (Glucagen) 1 mg Q15M PRN IM DECREASED GLUCOSE; Start 11/27/18 at 02:30 Glucose (Glutose) 15 gm Q15M PRN BUCCAL DECREASED GLUCOSE; Start 11/27/18 at 02:30 Levothyroxine Sodium (Synthroid Iv) 75 mcg DAILY@06 IV Last administered on 11/28/18at 05:54; Admin Dose 75 MCG; Start 11/27/18 at 06:00 Piperacillin Sod/ Tazobactam Sod 100 ml @ 200 mls/hr Q8 IVPB Last administered on 11/28/18at 13:35; Admin Dose 200 MLS/HR; Start 11/27/18 at 22:00 Enoxaparin Sodium (Lovenox) 40 mg DAILY SC ; Start 11/28/18 at 09:00 Famotidine (Pepcid) 20 mg HS PO Last administered on 11/27/18at 21:15; Admin Dose 20 MG; Start 11/27/18 at 21:00 Lactobacillus Acidophilus/ Rhamnosus (Culturelle) 1 cap BID PO Last administered on 11/28/18at 08:59; Admin Dose 1 CAP; Start 11/27/18 at 21:00 Atorvastatin Calcium (Lipitor) 20 mg QHS PO ; Start 11/28/18 at 21:00 Duloxetine HCl (Cymbalta) 30 mg DAILY PO Last administered on 11/28/18at 08:59; Admin Dose 30 MG; Start 11/28/18 at 09:00 Pregabalin (Lyrica) 100 mg DAILY PO Last administered on 11/28/18at 09:00; Admin Dose 100 MG; Start 11/28/18 at 09:00 Lisinopril (Zestril) 10 mg DAILY PO Last administered on 11/28/18at 08:59; Admin Dose 10 MG; Start 11/27/18 at 22:30 Hydralazine HCl (Apresoline) 10 mg Q4H PRN IV sbp >160mmHg; Start 11/28/18 at 02:00 Hydrocortisone (Hydrocortisone 2.5% Cr) 1 applic BID PRN TOP itching; Start 11/28/18 at 02:00 Diphenhydramine HCl (Benadryl) 25 mg Q6H PRN PO ITCHING Last administered on 11/28/18at 10:56; Admin Dose 25 MG; Start 11/28/18 at 04:00 Metoprolol Succinate (Toprol Xl) 25 mg DAILY PO Last administered on 11/28/18at 14:29; Admin Dose 25 MG; Start 11/28/18 at 14:00 Insulin Glargine (Lantus) 9 units DAILY@2000 SC ; Start 11/28/18 at 20:00 Insulin Human Lispro (Humalog) 3 unit AC MEALS SC ; Start 11/28/18 at 17:25 Meds reviewed: Yes Allergies Coded Allergies: No Known Allergy (Unverified , 11/27/18) Allergies Reviewed: Yes Labs/Studies Labs Reviewed: Reviewed by anesthesiologist Result Diagram: 11/28/189 11/28/18448 Laboratory Tests 11/28/18 04:49 test: N/A Pre-procedure Exam Last vitals Vital Signs Date Temp Pulse Resp B/P (MAP) Pulse Ox O2 O2 Flow FiO2 Time Delivery Rate 11/28/18 98.4 65 18 130/60 90 14:32 (83) 11/28/18 Room Air 08:24 Airway: Adequate mouth opening, Adequate thyromental dist Mallampati: Mallampati IV Teeth: Normal Lung: Normal Heart: Normal ASA Physical Status ASA physical status: 3 Emergency: None Pre-operative Attestations Prior to commencing anesthesia and surgery, the patient was re-evaluated, there was verification of: *The patient's identity *The results of appropriate recent lab work and preoperative vital signs *The above evaluation not changing prior to induction *Anesthetic plan, risk benefits, alternative and complications discussed with patient/family; questions answered; patient/family understands, accepts and wishes to proceed. JASON LOVE DO Nov 28, 2018 15:41
[2018-11-28] MEDS ORDERED: MIDAZOLAM 1 MG/ML 2 ML INJ ONE (15:53)
[2018-11-28] MEDS ORDERED: KETAMINE (50 MG/ML) 10 ML VIAL ONE (15:54)
[2018-11-28] MEDS ORDERED: LIDOCAINE 2% (SDV) 5 ML INJ ONE ×2 (15:58→15:59)
[2018-11-28] MEDS ORDERED: LABETALOL HCL 20MG INJ IV PRN (16:00)
[2018-11-28] MEDS ORDERED: ONDANSETRON 4 MG INJ IV PRN (16:00)
[2018-11-28] MEDS ORDERED: KETOROLAC 30 MG INJ IV PRN (16:00)
[2018-11-28] MEDS ORDERED: POLYMYXIN/BACITRACIN 1L IRRIG ONE (16:23)
[2018-11-28] MEDS ORDERED: MUPIROCIN 2% 22 GM OINT TOP ONE (16:30)
[2018-11-28] MEDS ORDERED: LABETALOL HCL 20MG INJ ONE (16:39)
[2018-11-28] MEDS ORDERED: POLYMYXIN/BACITRACIN 1L IRRIG IRR ONE (17:00)
[2018-11-28] MEDS ORDERED: INSULIN LISPRO 100 UNIT/ML VIAL SC SCH (17:25)
--- NOTE | 2018-11-28 17:27 | PAC ---
Date/Time of Note Date/Time of Note DATE: 11/28/18 TIME: 17:27 Post-Anesthesia Notes Post-Anesthesia Note Last documented vital signs Vital Signs Date Temp Pulse Resp B/P (MAP) Pulse Ox O2 O2 Flow FiO2 Time Delivery Rate 11/28/18 98.4 65 18 130/60 90 14:32 (83) 11/28/18 98 72 20 150/63 95 Room Air 1727 Activity: WNL Respiratory function: WNL Cardiovascular function: WNL Mental status: Baseline Pain reasonably controlled: Yes Hydration appropriate: Yes Nausea/Vomiting absent: Yes JASON LOVE DO Nov 28, 2018 17:27
--- NOTE | 2018-11-28 17:31 | PN ---
Date/Time of Note Date/Time of Note DATE: 11/28/18 TIME: 17:30 Assessment/Plan Lines/Catheters IV Catheter Type (from Nrsg): Peripheral IV Assessment/Plan Problems: (1) Left foot infection (2) H/O foot surgery (3) Morbid obesity (4) Diabetes mellitus (5) Peripheral neuropathy (6) Foot pain Status: Acute Qualifiers: Laterality: unspecified laterality Qualified Codes: M79.673 - Pain in unspecified foot Assessment/Plan Patient to surgery today for incision and debridement with revision bunionectomy of the left foot Exam/Review of Systems Vital Signs Vitals Vital Signs Date Temp Pulse Resp B/P (MAP) Pulse Ox O2 O2 Flow FiO2 Time Delivery Rate 11/28/18 98.4 65 18 130/60 90 14:32 (83) 11/28/18 Room Air 08:24 Intake and Output 11/27/18 11/27/18 11/28/18 1515:00 23:00 07:00 IntakeIntake Total 1000 ml 1520 ml 220 ml OutputOutput Total 200 ml BalanceBalance 800 ml 1520 ml 220 ml Results Result Diagram: 11/28/18 0449 11/28/18 0449 DEANNA KIMBALL DPM Nov 28, 2018 17:31
--- NOTE | 2018-11-28 17:33 | SIPON ---
Date/Time of Note Date/Time of Note DATE: 11/28/18 TIME: 17:31 Operative Report Preoperative Diagnosis Left foot infection S/P bunionectomy of the left foot History of non compliance Diabetes mellitus Peripheral neuropathy Postoperative Diagnosis Left foot infection S/P bunionectomy of the left foot History of non compliance Diabetes mellitus Peripheral neuropathy Operation/Procedure Performed Incision and debridement of the left foot Revision bunionectomy of the left foot Posterior splint left LE Surgeon see signature line assistant shift supervisor None Anesthesia: general Estimated blood loss: 0 - 10 ml's Transfusion Required none Specimen Bone culture left foot (first met) Grafts/Implants none Complications none DEANNA KIMBALL DPM Nov 28, 2018 17:33
--- NOTE | 2018-11-28 17:33 | OPR ---
Date/Time of Note Date/Time of Note DATE: 11/19/18 TIME: 17:33 Operative Report Procedure Date: Nov 19, 2018 Preoperative Diagnosis Left foot severe bunion deformity Left flatfoot deformity Foot pain Morbid obesity Postoperative Diagnosis Left foot severe bunion deformity Left flatfoot deformity Foot pain Morbid obesity Operation/Procedure Performed Surgical correction of left foot bunion deformity Surgeon see signature line Appeals Representative None Anesthesia Type: general Estimated Blood Loss: minimal Transfusion none Specimen Bone from the left foot Grafts/Implants none Tubes/Drains None Complications none Pt Condition Post Procedure: stable Disposition: PACU Indications This is a pleasant 62-year-old female patient who has been suffering with severe left foot bunion deformity. Recommendation is made for bunionectomy of the left foot. Risks and complications of this type of surgery was discussed with patient in great detail. Risks and complications discussed include, but are not limited to, postoperative infection, postoperative pain, chronic pain and disability, hardware failure, malunion, nonunion, delayed union, failure of s urgery to correct the problem, need for additional surgical procedures, toenail changes, onychomycosis, deep venous thrombosis, gait disturbance, problems with shoegear, limitation of activities, limb loss and loss of life. Patient understands the discussion and agrees to the procedure. An informed consent was obtained, signed and placed in the chart. No guarantee or warrantee was given or implied as to the outcome of the procedure either in verbal or written form. Procedure Description The patient was seen in the preoperative unit. The proposed surgery was discussed with patient in great detail. Risks and complications of this type of surgery was discussed with patient in great detail. Opportunity was given to patient to ask questions and all questions were answered. The patient acknowledges understanding of the discussion. An informed consent was then obta ined, signed and placed in the chart. Patient was taken to the operating room and was placed on the operating table in the supine position. All bony prominences were padded properly. A timeout was called by the circulating nurse. Everyone in the operating room was agreeable to the timeout. The patient was then placed under general anesthesia by the anesthesiologist. A tourniquet was applied to the right ankle. The right lower extremity was scrubbed, prepped, and draped in the usual aseptic manner. An Esmarch bandage was utilized to exsanguinate the left foot and the tourniquet was inflated to 250 mmHg pressure. Attention was directed to the right foot. A 6 cm linear incision was made medial and parallel to the extensor hallucis longus tendon using a sharp #10 blade. Bleeders were cauterized as necessary. Sharp and blunt dissection was made of the joint capsule with care being taken to identify and protect vital neurovascular structures. The first metatarsal phalangeal joint capsule was identified and a linear capsulotomy was done using a #15 blade. The joint capsule was then sharply dissected at the periosteal level exposing the first metatarsal phalangeal joint. Large bony prominence was found of the dorsal and medial aspect of the first metatarsal head. A McGlamry elevator was inserted into the joints and adhesions were released. Next, a power saw was used to cut the medial bony prominence. A Chevron type osteotomy was made at the head of the first metatarsal bone. The capital fragment was translated laterally to the desired position and a 0.045 K wire was inserted for temporary fixation. I inserted a guidewire for a 3.0 cannulated and headless screw for fixation using lag technique. The remaining medial shelf of bone was cut using a power saw. All rough edges were smoothed using a power rasp. The deformity was corrected at this time. Excellent range of motion of the first metatarsal phalangeal joint was noted. Copious amounts of sterile normal saline was used to irrigate the wound. Next, the joint capsule was closed using 3-0 Vicryl suture; the subcutaneous layer was closed using 4-0 Vicryl and the skin was closed using 5-0 Monocryl in subcuticular stitch pattern. Steri-Strips were applied. Postoperative injection was given, 15 cc of 0.5% Marcaine plain. Sterile dressing was applied to the right foot. The Esmarch was deflated at this time and prompt hyperemic response was noted to the digits of the right foot. The patient tolerated the procedure and anesthesia well. She was transferred to the recovery room with vital signs stable and vascular status intact to the right foot. The patient will be discharged home after postoperative monitoring. Postoperative orders were written. Prescription for pain medication was electronically submitted to patient's pharmacy. Patient is to follow-up in the office in 1 week. Weightbearing status is partial weightbearing right foot with crutches and a postop shoe. DEANNA KIMBALL DPM Nov 28, 2018 17:33
--- NOTE | 2018-11-28 19:50 | PN ---
Date/Time of Note Date/Time of Note DATE: 11/28/18 TIME: 19:49 Assessment/Plan Lines/Catheters IV Catheter Type (from Nrs): Peripheral IV Assessment/Plan Chief Complaint/Hosp Course -Awaiting vascular arterial ultrasound Subjective 24 Hr Interval Summary Constitutional: no complaints Exam/Review of Systems Vital Signs Vitals Exam Free Text/Dictation GENERAL: Alert and oriented x3 HEENT: Normocephalic, atraumatic. Mucosa moist. NECK: Supple, no carotid bruit. PULMONARY: Clear to auscultation bilaterally. No crackles. CARDIOVASCULAR: S1, S2 present. No murmurs. ABDOMEN: Soft, nontender, nondistended. Bowel sounds positive. Large truncal obesity. EXTREMITIES: Right lower extremity palpable femoral pulse, nonpalpable pedal pulse. Motor and sensory intact. Cap refill 3 seconds. Left lower extremity palpable femoral pulse, nonpalpable pedal pulse. Motor and sensory intact. Cap refill 3 to 4 seconds. Cellulitis of the forefoot and first toe wound with drainage with purulence. ANALILIA GALLO MD Nov 28, 2018 19:50
--- NOTE | 2018-11-28 20:46 | CONS ---
DATE OF ADMISSION: 11/27/2018 DATE OF CONSULTATION: 11/27/2018 VASCULAR SURGERY CONSULTATION Dear Doctors: Ms. Vásquez is a 62-year-old morbidly obese female with BMI of 51 who had presented to [facility] secondary to left lower extremity diabetic foot infection after she had underwent a bun ionectomy. It appears the patient requires to undergo incision and drainage and debridement with our podiatry colleagues and vascular surgery consultation has been obtained for further evaluation and l ower extremity perfusion given her past medical history of 30 years of smoking and nonpalpable pedal pulses. Upon discussion with the patient, it appears the patient, post her bunionectomy, she had not been compliant with further recommendations to not put weight on her left lower extremity. At the [facility], the patient denies shortness of breath, chest pain, nausea, vomiting, fever or chills. REVIEW OF SYSTEMS: A 14-point review performed and negative except what is mentioned in the HPI. PAST MEDICAL HISTORY: Entails diabetes type 2, hypertension, dyslipidemia, smoking, bilateral lower extremity atherosclerosis, diabetic neuropathy, osteoarthritis, morbidly obese, noncompliance, hypoth yroidism. PAST SURGICAL HISTORY: Left lower extremity debridement and bunionectomy. FAMILY HISTORY: Positive for hypertension. SOCIAL HISTORY: Ex-smoker, 1 pack per day for 30 years. Currently denies tobacco, alcohol or illici t drug use. PHYSICAL EXAMINATION: GENERAL: Alert and oriented x3, in no apparent distress. HEENT: Normocephalic, atraumatic. Mucosa moist. NECK: Supple, no carotid bruit. PULMONARY: Clear to auscultation bilaterally. No crackles. CARDIOVASCULAR: S1, S2 present. No murmurs. ABDOMEN: Soft, nontender, nondistended. Bowel sounds positive. Large truncal obesity. EXTREMITIES: Right lower extremity palpable femoral pulse, nonpalpable pedal pulse. Motor and senso ry intact. Cap refill 3 seconds. Left lower extremity palpable femoral pulse, nonpalpable pedal pulse. Motor and sensory intact. Cap refill 3 to 4 seconds. Cellulitis of the forefoot and first toe wound with drainage with purulence. ASSESSMENT AND PLAN: Bilateral lower extremity atherosclerosis with left lower extremity nonhealing ulcer: It seems that the patient has developed infection of her left lower extremity with a wound ov er her previous incision. There is concern the patient's compliance and possible atherosclerotic dis ease may be component to her wound healing and infectious process. We will plan to obtain bilateral lower extremity arterial ultrasound to further delineate her infrainguinal atherosclerotic disease. Optimize vascular status (BP meds, diet, nutrition, exercise, sugar control, antiplatelets). Cleared from vascular surgery standpoint to undergo debridement/amputation. For now, we will plan to follow closely with our podiatry colleagues regarding her wound healing. Discussed findings, plan and management with the patient. She understands all that is involved. The patient has asked to have everything done in order to salvage her limb. Thank you for allowing us to partake in the care of your patient. Please call us with any questions. Dictated By: ANALILIA FALK/DEBI Conf#: [id number] DID#: [id number] CC: LENIN RADFORD MD;*EndCC*
[2018-11-28] MEDS: ATORVASTATIN 20 MG TAB PO SCH (21:24)
[2018-11-28] MEDS: FAMOTIDINE 20 MG TAB PO SCH (21:24)
[2018-11-28] MEDS: INSULIN GLARGINE [LANTus] (100 UNITS/ML) SYG SC SCH (21:43)
[2018-11-29] MEDS: HYDROCODONE/APAP (5/325) TAB PO PRN ×5 (01:55→21:14)
[2018-11-29 02:00] VITALS: BP 147/71; PULSE 62; RESP 18
[2018-11-29] MEDS: ACCU-CHEK XX SCH (02:00)
[2018-11-29] MEDS: DEXTROSE 5%-0.45% NACL 1,000 ML IV SCH (02:51)
[2018-11-29] MEDS: LEVOTHYROXINE 100 MCG VIAL IV SCH (06:29)
[2018-11-29] MEDS: PIPER-TAZO 3.375 GM IV (PMX) 100 ML IVPB SCH ×3 (06:29→22:04)
[2018-11-29] MEDS: PREGABALIN 100 MG CAP PO SCH (08:31)
[2018-11-29] MEDS: DULOXETINE 30 MG CAP DR PO SCH (08:31)
[2018-11-29] MEDS: LACTOBACILLUS RHAMNOSUS CAP PO SCH ×2 (08:31→21:05)
[2018-11-29] MEDS: LISINOPRIL 10 MG TAB PO SCH (08:32)
[2018-11-29] MEDS: METOPROLOL (XL) 25 MG TAB PO SCH (08:32)
[2018-11-29] MEDS: ENOXAPARIN 40 MG/0.4 ML SYG SC SCH (08:36)
[2018-11-29] MEDS: INSULIN ASPART [NOVOLOG] 3 ML PEN SC SCH ×6 (08:37→21:00)
[2018-11-29 08:52] VITALS: BP 136/74; PULSE 75; RESP 18
[2018-11-29 16:49] VITALS: BP 153/69; PULSE 62; RESP 18
--- NOTE | 2018-11-29 17:37 | CONS ---
Assessment/Plan Assessment/Plan Hospital Course (Demo Recall) ID PROGRESS NOTE CURRENT ABX: DAY # > Zosyn s/p Vanco IV 11/29/18 0800 11/29/18 0800 24H INTERVAL SUMMARY * POD #1 -> S/P left foot I&D w/bunionectomy revision * Obese F, no fevers, VSS, reports pain in foot --"taking pain medication which helps" * She wants to go home tomorrow -- I told her it would be best to wait for the final Cx as I cannot guarantee the Cx will be finalized tomorrow. I encouraged her to be patient and I will see her tomorrow. I would also like to swab her nares for MRSA. * Per notes - she has hx of non-compliance MICRO * 11/28/18 WOUND CX: WOUND CULTURE Preliminary No growth after 1 day PHYSICAL EXAMINATION: GENERAL: Afebrile, VSS, obese HEENT: AT, NC, anicteric NECK: Grossly normal CHEST: Equal chest rise bilaterally = without dyspnea HEART: Pulse RRR ABDOMEN: Soft / ND EXTREMITIES: Warm, left foot ACEI wrap DSG C/D/I SKIN: No rash, no diaphoresis ID ASSESSMENT 62 yo F admit with: POD#1 -> s/p 11/28/18 Incision and debridement of the left foot/Revision bunionectomy of the left foot/Posterior splint left LE 1. Left foot cellulitis/ abscess, has hardware, probable too early for OM. Stable cont antibiotics 2. Left foot bunion, apparently the bones have shifted 3. Type 2 diabetes [8.9]/ metabolic syndrome 4. Hypertension 5. Dyslipidemia 6. Tobacco abuse sp counseling, offered patch 7. PAD? 8. Diabetic neuropathy 9. ELVI risk 10. Obesity 11. Nonadherence 12. Marijuana ABX ALLERGIES: KNDA INVASIVES: PICC LUEXT CURRENT ABX: DAY # => > Zosyn s/p Vanco IV ID RECOMMENDATIONS/PLAN: 1. She wants to go home tomorrow -- I told her it would be best to wait for the final Cx as I cannot guarantee the Cx will be finalized tomorrow. I encouraged her to be patient and I will see her tomorrow. I would also like to swab her nares for MRSA. . Consultation Date/Type/Reason Admit Date/Time Nov 27, 2018 at 09:08 Initial Consult Date 11/27/18 Date/Time of Note DATE: 11/29/18 TIME: 17:21 Exam/Review of Systems Exam Vitals Vital Signs Date Temp Pulse Resp B/P (MAP) Pulse Ox O2 O2 Flow FiO2 Time Delivery Rate 11/29/18 98.6 62 18 153/69 100 Room Air 16:49 (97) Intake and Output 11/28/18 11/28/18 11/29/18 1515:00 23:00 07:00 IntakeIntake Total 100 ml 1500 ml 100 ml OutputOutput Total 10 ml BalanceBalance 100 ml 1490 ml 100 ml Results Result Diagram: 11/29/18 0800 11/29/18 0800 Results 24hrs Laboratory Tests Test 11/28/18 18:39 11/28/18 21:24 11/29/18 02:22 11/29/18 08:00 Bedside Glucose 171 224 H 155 White Blood Count 14.7 H Red Blood Count 5.38 Hemoglobin 14.3 Hematocrit 46.2 Mean Corpuscular 85.9 Volume Mean Corpuscular 26.6 L Hemoglobin Mean Corpuscular 31.0 L Hemoglobin Concent Red Cell 15.8 H Distribution Width Platelet Count 347 Mean Platelet Volume 11.8 H Immature 0.500 H Granulocytes % Neutrophils % 74.0 Lymphocytes % 18.4 Monocytes % 5.1 Eosinophils % 1.6 Basophils % 0.4 Nucleated Red Blood 0.0 Cells % Immature 0.070 H Granulocytes # Neutrophils # 10.9 H Lymphocytes # 2.7 Monocytes # 0.8 Eosinophils # 0.2 Basophils # 0.1 Nucleated Red Blood 0.0 Cells # Sodium Level 142 Potassium Level 4.2 Chloride Level 104 Carbon Dioxide Level 29 Anion Gap 9 Blood Urea Nitrogen 10 Creatinine 0.67 Est Glomerular > 60 Filtrat Rate mL/min Glucose Level 196 Calcium Level 9.5 Free Thyroxine 1.10 Total 1.08 Triiodothyronine Test 11/29/18 08:02 11/29/18 12:33 Bedside Glucose 181 191 Medications Medication Current Medications IV Flush (NS 3 ml) 3 ml PER PROTOCOL IV ; Start 11/27/18 at 02:00 Ondansetron HCl (Zofran Inj) 4 mg Q6H PRN IV NAUSEA/VOMITING; Start 11/27/18 at 02:00 Morphine Sulfate (morphine) 2 mg Q4H PRN IV .PAIN 7-10 Last administered on 11/27/18at 21:21; Admin Dose 2 MG; Start 11/27/18 at 02:00 Diagnostic Test (Pha) (Accu-Chek) 1 ea 02 XX ; Start 11/28/18 at 02:00 Miscellaneous Information 1 ea NOTE XX ; Start 11/27/18 at 02:30 Glucose (Glutose) 15 gm Q15M PRN PO DECREASED GLUCOSE; Start 11/27/18 at 02:30 Glucose (Glutose) 22.5 gm Q15M PRN PO DECREASED GLUCOSE; Start 11/27/18 at 02:30 Dextrose (D50w Syringe) 25 ml Q15M PRN IV DECREASED GLUCOSE; Start 11/27/18 at 02:30 Dextrose (D50w Syringe) 50 ml Q15M PRN IV DECREASED GLUCOSE; Start 11/27/18 at 02:30 Glucagon (Glucagen) 1 mg Q15M PRN IM DECREASED GLUCOSE; Start 11/27/18 at 02:30 Glucose (Glutose) 15 gm Q15M PRN BUCCAL DECREASED GLUCOSE; Start 11/27/18 at 02:30 Levothyroxine Sodium (Synthroid Iv) 75 mcg DAILY@06 IV Last administered on 11/29/18at 06:29; Admin Dose 75 MCG; Start 11/27/18 at 06:00 Piperacillin Sod/ Tazobactam Sod 100 ml @ 200 mls/hr Q8 IVPB Last administered on 11/29/18at 13:53; Admin Dose 200 MLS/HR; Start 11/27/18 at 22:00 Enoxaparin Sodium (Lovenox) 40 mg DAILY SC Last administered on 11/29/18at 08:36; Admin Dose 40 MG; Start 11/28/18 at 09:00 Famotidine (Pepcid) 20 mg HS PO Last administered on 11/28/18at 21:24; Admin Dose 20 MG; Start 11/27/18 at 21:00 Lactobacillus Acidophilus/ Rhamnosus (Culturelle) 1 cap BID PO Last administered on 11/29/18at 08:31; Admin Dose 1 CAP; Start 11/27/18 at 21:00 Atorvastatin Calcium (Lipitor) 20 mg QHS PO Last administered on 11/28/18at 21:24; Admin Dose 20 MG; Start 11/28/18 at 21:00 Duloxetine HCl (Cymbalta) 30 mg DAILY PO Last administered on 11/29/18 08:31; Admin Dose 30 MG; Start 11/28/18 at 09:00 Pregabalin (Lyrica) 100 mg DAILY PO Last administered on 11/29/18 08:31; Admin Dose 100 MG; Start 11/28/18 at 09:00 Lisinopril (Zestril) 10 mg DAILY PO Last administered on 11/29/18 08:32; Admin Dose 10 MG; Start 11/27/18 at 22:30 Hydralazine HCl (Apresoline) 10 mg Q4H PRN IV sbp >160mmHg; Start 11/28/18 at 02:00 Hydrocortisone (Hydrocortisone 2.5% Cr) 1 applic BID PRN TOP itching; Start 11/28/18 at 02:00 Diphenhydramine HCl (Benadryl) 25 mg Q6H PRN PO ITCHING Last administered on 11/28/18 21:24; Admin Dose 25 MG; Start 11/28/18 at 04:00 Metoprolol Succinate (Toprol Xl) 25 mg DAILY PO Last administered on 11/29/18 08:32; Admin Dose 25 MG; Start 11/28/18 at 14:00 Insulin Glargine (Lantus) 9 units DAILY@2000 SC Last administered on 11/28/18 21:43; Admin Dose 9 UNITS; Start 11/28/18 at 20:00 Insulin Aspart (Novolog Insulin Pen) NOVOLOG *MILD* ALGORITHM WITH MEALS BEDTIME SC Last administered on 11/29/18 12:36; Admin Dose 2 UNIT; Start 11/28/18 at 21:00 Acetaminophen/ Hydrocodone Bitart ([place] (5/325)) 1 tab Q4H PRN PO MODERATE PAIN LEVEL 4-6 Last administered on 11/29/18 17:19; Admin Dose 1 TAB; Start 11/29/18 at 01:30 Insulin Aspart (Novolog Insulin Pen) 3 unit AC MEALS SC Last administered on 11/29/18 12:35; Admin Dose 3 UNIT; Start 11/29/18 at 11:10 BLANCA CHAHAL NP Nov 29, 2018 17:37
[2018-11-29 19:20] VITALS: BP 115/61; PULSE 65; RESP 18
[2018-11-29] MEDS: FAMOTIDINE 20 MG TAB PO SCH (21:05)
[2018-11-29] MEDS: ATORVASTATIN 20 MG TAB PO SCH (21:05)
[2018-11-29] MEDS: INSULIN GLARGINE [LANTus] (100 UNITS/ML) SYG SC SCH (21:11)
[2018-11-29] MEDS: DIPHENHYDRAMINE 25 MG CAP PO PRN (21:18)
--- NOTE | 2018-11-29 22:22 | PN ---
Date/Time of Note Date/Time of Note DATE: 11/29/18 TIME: 22:19 Assessment/Plan VTE Prophylaxis Risk score (from Nsg)>0 risk: 6 SCD applied (from Nsg): Yes SCD contraindicated: low risk/ambulating Pharmacological prophylaxis: LMWH Lines/Catheters IV Catheter Type (from Nrsg): [place] Assessment/Plan Hospital Course A/P 1. Left foot cellulitis/ abscess, has hardware, probable too early for OM. Stable cont antibiotics 2. Left foot bunion, apparently the bones have shifted. SP I&D; cont wound care; home when ok w Podiatry 3. Type 2 diabetes [8.9]/ metabolic syndrome 4. Hypertension 5. Dyslipidemia 6. Tobacco abuse sp counseling, offered patch 7. PAD? 8. Diabetic neuropathy 9. ELVI risk 10. Obesity 11. Nonadherence 12. Marijuana S: 11/27: No events noted 11/28: no distress; no cp/ dyspnea 11/29: no events O: Vital signs stable PE No pallor Regular Clear Benign Left foot c/d/i Result Diagram: 11/29/18 0800 11/29/18 0800 Results 24hrs Laboratory Tests Test 11/29/18 02:22 11/29/18 08:00 11/29/18 08:02 11/29/18 12:33 Bedside Glucose 155 181 191 White Blood Count 14.7 H Red Blood Count 5.38 Hemoglobin 14.3 Hematocrit 46.2 Mean Corpuscular 85.9 Volume Mean Corpuscular 26.6 L Hemoglobin Mean Corpuscular 31.0 L Hemoglobin Concent Red Cell 15.8 H Distribution Width Platelet Count 347 Mean Platelet Volume 11.8 H Immature 0.500 H Granulocytes % Neutrophils % 74.0 Lymphocytes % 18.4 Monocytes % 5.1 Eosinophils % 1.6 Basophils % 0.4 Nucleated Red Blood 0.0 Cells % Immature 0.070 H Granulocytes # Neutrophils # 10.9 H Lymphocytes # 2.7 Monocytes # 0.8 Eosinophils # 0.2 Basophils # 0.1 Nucleated Red Blood 0.0 Cells # Sodium Level 142 Potassium Level 4.2 Chloride Level 104 Carbon Dioxide Level 29 Anion Gap 9 Blood Urea Nitrogen 10 Creatinine 0.67 Est Glomerular > 60 Filtrat Rate mL/min Glucose Level 196 Calcium Level 9.5 Free Thyroxine 1.10 Total 1.08 Triiodothyronine Test 11/29/18 17:55 2/16/19 21:04 Bedside Glucose 170 157 Exam/Review of Systems Exam Vitals Vital Signs Date Temp Pulse Resp B/P (MAP) Pulse Ox O2 O2 Flow FiO2 Time Delivery Rate 11/29/18 97.9 65 18 115/61 91 Room Air 19:20 (79) Intake and Output 11/28/18 11/28/18 11/29/18 1515:00 23:00 07:00 IntakeIntake Total 100 ml 1500 ml 100 ml OutputOutput Total 10 ml BalanceBalance 100 ml 1490 ml 100 ml Results Results 24hrs Laboratory Tests Test 11/29/18 02:22 11/29/18 08:00 11/29/18 08:02 11/29/18 12:33 Bedside Glucose 155 181 191 White Blood Count 14.7 H Red Blood Count 5.38 Hemoglobin 14.3 Hematocrit 46.2 Mean Corpuscular 85.9 Volume Mean Corpuscular 26.6 L Hemoglobin Mean Corpuscular 31.0 L Hemoglobin Concent Red Cell 15.8 H Distribution Width Platelet Count 347 Mean Platelet Volume 11.8 H Immature 0.500 H Granulocytes % Neutrophils % 74.0 Lymphocytes % 18.4 Monocytes % 5.1 Eosinophils % 1.6 Basophils % 0.4 Nucleated Red Blood 0.0 Cells % Immature 0.070 H Granulocytes # Neutrophils # 10.9 H Lymphocytes # 2.7 Monocytes # 0.8 Eosinophils # 0.2 Basophils # 0.1 Nucleated Red Blood 0.0 Cells # Sodium Level 142 Potassium Level 4.2 Chloride Level 104 Carbon Dioxide Level 29 Anion Gap 9 Blood Urea Nitrogen 10 Creatinine 0.67 Est Glomerular > 60 Filtrat Rate mL/min Glucose Level 196 Calcium Level 9.5 Free Thyroxine 1.10 Total 1.08 Triiodothyronine Test 11/29/18 17:55 11/29/18 21:04 Bedside Glucose 170 157 Medications Medication Current Medications IV Flush (NS 3 ml) 3 ml PER PROTOCOL IV ; Start 11/27/18 at 02:00 Ondansetron HCl (Zofran Inj) 4 mg Q6H PRN IV NAUSEA/VOMITING; Start 11/27/18 at 02:00 Morphine Sulfate (morphine) 2 mg Q4H PRN IV .PAIN 7-10 Last administered on 11/27/18at 21:21; Admin Dose 2 MG; Start 11/27/18 at 02:00 Diagnostic Test (Pha) (Accu-Chek) 1 ea 02 XX ; Start 11/28/18 at 02:00 Miscellaneous Information 1 ea NOTE XX ; Start 11/27/18 at 02:30 Glucose (Glutose) 15 gm Q15M PRN PO DECREASED GLUCOSE; Start 11/27/18 at 02:30 Glucose (Glutose) 22.5 gm Q15M PRN PO DECREASED GLUCOSE; Start 11/27/18 at 02:30 Dextrose (D50w Syringe) 25 ml Q15M PRN IV DECREASED GLUCOSE; Start 11/27/18 at 02:30 Dextrose (D50w Syringe) 50 ml Q15M PRN IV DECREASED GLUCOSE; Start 11/27/18 at 02:30 Glucagon (Glucagen) 1 mg Q15M PRN IM DECREASED GLUCOSE; Start 11/27/18 at 02:30 Glucose (Glutose) 15 gm Q15M PRN BUCCAL DECREASED GLUCOSE; Start 11/27/18 at 02:30 Levothyroxine Sodium (Synthroid Iv) 75 mcg DAILY@06 IV Last administered on 11/29/18at 06:29; Admin Dose 75 MCG; Start 11/27/18 at 06:00 Piperacillin Sod/ Tazobactam Sod 100 ml @ 200 mls/hr Q8 IVPB Last administered on 11/29/18at 22:04; Admin Dose 200 MLS/HR; Start 11/27/18 at 22:00 Enoxaparin Sodium (Lovenox) 40 mg DAILY SC Last administered on 11/29/18at 08:36; Admin Dose 40 MG; Start 11/28/18 at 09:00 Famotidine (Pepcid) 20 mg HS PO Last administered on 11/29/18at 21:05; Admin Dose 20 MG; Start 11/27/18 at 21:00 Lactobacillus Acidophilus/ Rhamnosus (Culturelle) 1 cap BID PO Last administered on 11/29/18 21:05; Admin Dose 1 CAP; Start 11/27/18 at 21:00 Atorvastatin Calcium (Lipitor) 20 mg QHS PO Last administered on 11/29/18at 21:05; Admin Dose 20 MG; Start 11/28/18 at 21:00 Duloxetine HCl (Cymbalta) 30 mg DAILY PO Last administered on 11/29/18at 08:31; Admin Dose 30 MG; Start 11/28/18 at 09:00 Pregabalin (Lyrica) 100 mg DAILY PO Last administered on 11/29/18 08:31; Admin Dose 100 MG; Start 11/28/18 at 09:00 Lisinopril (Zestril) 10 mg DAILY PO Last administered on 11/29/18 08:32; Admin Dose 10 MG; Start 11/27/18 at 22:30 Hydralazine HCl (Apresoline) 10 mg Q4H PRN IV sbp >160mmHg; Start 11/28/18 at 02:00 Hydrocortisone (Hydrocortisone 2.5% Cr) 1 applic BID PRN TOP itching; Start 11/28/18 at 02:00 Diphenhydramine HCl (Benadryl) 25 mg Q6H PRN PO ITCHING Last administered on 11/29/18 21:18; Admin Dose 25 MG; Start 11/28/18 at 04:00 Metoprolol Succinate (Toprol Xl) 25 mg DAILY PO Last administered on 11/29/18 08:32; Admin Dose 25 MG; Start 11/28/18 at 14:00 Insulin Glargine (Lantus) 9 units DAILY@2000 SC Last administered on 11/29/18 21:11; Admin Dose 9 UNITS; Start 11/28/18 at 20:00 Insulin Aspart (Novolog Insulin Pen) NOVOLOG *MILD* ALGORITHM WITH MEALS BEDTI ME SC Last administered on 11/29/18 17:58; Admin Dose 1 UNIT; Start 11/28/18 at 21:00 Acetaminophen/ Hydrocodone Bitart ([place] (5/325)) 1 tab Q4H PRN PO MODERATE PAIN LEVEL 4-6 Last administered on 11/29/18 21:14; Admin Dose 1 TAB; Start 11/29/18 at 01:30 Insulin Aspart (Novolog Insulin Pen) 3 unit AC MEALS SC Last administered on 11/29/18 17:58; Admin Dose 3 UNIT; Start 11/29/18 at 11:10 LOC CONCEPCION MD Nov 29, 2018 22:22
[2018-11-30] MEDS: ACCU-CHEK XX SCH (02:00)
[2018-11-30 02:15] VITALS: BP 131/72; PULSE 61; RESP 18
[2018-11-30] MEDS: PIPER-TAZO 3.375 GM IV (PMX) 100 ML IVPB SCH (06:23)
[2018-11-30] MEDS: LEVOTHYROXINE 75 MCG TAB PO SCH (06:23)
[2018-11-30] MEDS: DIPHENHYDRAMINE 25 MG CAP PO PRN ×2 (06:29→22:54)
[2018-11-30] MEDS: HYDROCODONE/APAP (5/325) TAB PO PRN ×3 (06:29→19:13)
[2018-11-30 07:56] VITALS: BP 149/66; PULSE 56; RESP 16
[2018-11-30] MEDS: DULOXETINE 30 MG CAP DR PO SCH (08:49)
[2018-11-30] MEDS: LACTOBACILLUS RHAMNOSUS CAP PO SCH ×2 (08:49→20:54)
[2018-11-30] MEDS: PREGABALIN 100 MG CAP PO SCH (08:50)
[2018-11-30] MEDS: METOPROLOL (XL) 25 MG TAB PO SCH (08:50)
[2018-11-30] MEDS: LISINOPRIL 10 MG TAB PO SCH (08:50)
[2018-11-30] MEDS: ENOXAPARIN 40 MG/0.4 ML SYG SC SCH (08:51)
[2018-11-30] MEDS: INSULIN ASPART [NOVOLOG] 3 ML PEN SC SCH ×7 (08:52→20:54)
[2018-11-30] MEDS ORDERED: LIDOCAINE 1% (MPF) 5 ML VIAL SC ONE (12:30)
--- NOTE | 2018-11-30 13:18 | CONS ---
Assessment/Plan Assessment/Plan Hospital Course (Demo Recall) ID PROGRESS NOTE CURRENT ABX: DAY # > Zosyn s/p Vanco IV 11/29/18 0800 11/29/18 0800 24H INTERVAL SUMMARY * POD #2 -> S/P left foot I&D w/bunionectomy revision * Pending PICC Line * 11/28/18 CXR: IMPRESSION:Mild diffuse interstitial lung disease with central peribronchial thickening, mild pulmonary edema versus interstitial pneumonitis with peribronchial inflammation. MICRO * 11/28/18 WOUND CX: Microbiology GRAM STAIN Final POLYMORPH. LEUKOCYTE NONE SEEN . NO ORGANISM SEEN WOUND CULTURE Preliminary No growth after 2 days PHYSICAL EXAMINATION: GENERAL: Afebrile, VSS, obese HEENT: AT, NC, anicteric NECK: Grossly normal CHEST: Equal chest rise bilaterally = without dyspnea HEART: Pulse RRR ABDOMEN: Soft / ND EXTREMITIES: Warm, left foot ACEI wrap DSG C/D/I SKIN: No rash, no diaphoresis ID ASSESSMENT 62 yo F admit with: POD#2 -> s/p 11/28/18 Incision and debridement of the left foot/Revision bunionectomy of the left foot/Posterior splint left LE 1. Left foot cellulitis/ abscess, has hardware, probable too early for OM. Stable cont antibiotics 2. Left foot bunion, apparently the bones have shifted * 11/19/18 PATHO REPORT: MICROSCOPIC DIAGNOSIS:Bone segments of left foot, correction of bunion:-- Segments of cancellous bone, partially covered by focally degenerative hyaline cartilage, compatible with a bunion deformity. 3. Type 2 diabetes [8.9]/ metabolic syndrome 4. Hypertension 5. Dyslipidemia 6. Tobacco abuse sp counseling, offered patch 7. PAD? 8. Diabetic neuropathy 9. ELVI risk 10. Obesity 11. Nonadherence 12. Marijuana ABX ALLERGIES: KNDA INVASIVES: PICC LUEXT CURRENT ABX: DAY # => Zosyn s/p Vanco IV ID RECOMMENDATIONS/PLAN: 1. MRSA nares pending 2. DC Zosyn and start Vanco IV + Ceftriaxone -- complete 28 day course from 11/28/[address] EDEN ABX DISCHARGE RECS: When cleared by primary for DC home, patient may DC home on the followin. PICC Line Care per protocol 2. Vancomycin 1 GM IV Q24H with continued dose per outpatient pharmacist to complete 26 days 3. Ceftriaxone 2GM IVPB daily x 26 days . Consultation Date/Type/Reason Admit Date/Time Nov 27, 2018 at 09:08 Initial Consult Date 11/27/18 Date/Time of Note DATE: 11/30/18 TIME: 13:03 Exam/Review of Systems Exam Vitals Vital Signs Date Temp Pulse Resp B/P (MAP) Pulse Ox O2 O2 Flow FiO2 Time Delivery Rate 11/30/18 98.7 56 16 149/66 97 07:56 (93) 11/30/18 Room Air 02:15 Intake and Output 11/29/18 11/29/18 11/30/18 1414:59 22:59 06:59 IntakeIntake Total 1200 ml 680 ml 280 ml OutputOutput Total 450 ml BalanceBalance 750 ml 680 ml 280 ml Results Result Diagram: 11/29/18 0800 11/29/18 0800 Results 24hrs Laboratory Tests Test 11/29/18 17:55 11/29/18 21:04 11/30/18 02:10 11/30/18 08:47 Bedside Glucose 170 157 154 Urine Color STRAW Urine Clarity CLEAR Urine pH 6.0 Urine Specific 1.005 [place] Urine Ketones NEGATIVE Urine Nitrite NEGATIVE Urine Bilirubin NEGATIVE Urine Urobilinogen NEGATIVE Urine Leukocyte NEGATIVE Esterase Urine Hemoglobin NEGATIVE Urine Glucose NEGATIVE Urine Total Protein NEGATIVE Test 11/30/18 12:40 Bedside Glucose 186 Medications Medication Current Medications IV Flush (NS 3 ml) 3 ml PER PROTOCOL IV ; Start 11/27/18 at 02:00 Ondansetron HCl (Zofran Inj) 4 mg Q6H PRN IV NAUSEA/VOMITING; Start 11/27/18 at 02:00 Morphine Sulfate (morphine) 2 mg Q4H PRN IV .PAIN 7-10 Last administered on 11/27/18at 21:21; Admin Dose 2 MG; Start 11/27/18 at 02:00 Diagnostic Test (Pha) (Accu-Chek) 1 ea 02 XX ; Start 11/28/18 at 02:00 Miscellaneous Information 1 ea NOTE XX ; Start 11/27/18 at 02:30 Glucose (Glutose) 15 gm Q15M PRN PO DECREASED GLUCOSE; Start 11/27/18 at 02:30 Glucose (Glutose) 22.5 gm Q15M PRN PO DECREASED GLUCOSE; Start 11/27/18 at 02:30 Dextrose (D50w Syringe) 25 ml Q15M PRN IV DECREASED GLUCOSE; Start 11/27/18 at 02:30 Dextrose (D50w Syringe) 50 ml Q15M PRN IV DECREASED GLUCOSE; Start 11/27/18 at 02:30 Glucagon (Glucagen) 1 mg Q15M PRN IM DECREASED GLUCOSE; Start 11/27/18 at 02:30 Glucose (Glutose) 15 gm Q15M PRN BUCCAL DECREASED GLUCOSE; Start 11/27/18 at 02:30 Piperacillin Sod/ Tazobactam Sod 100 ml @ 200 mls/hr Q8 IVPB Last administered on 11/30/18at 06:23; Admin Dose 200 MLS/HR; Start 11/27/18 at 22:00 Enoxaparin Sodium (Lovenox) 40 mg DAILY SC Last administered on 11/30/18at 08:51; Admin Dose 40 MG; Start 11/28/18 at 09:00 Famotidine (Pepcid) 20 mg HS PO Last administered on 11/29/18at 21:05; Admin Dose 20 MG; Start 11/27/18 at 21:00 Lactobacillus Acidophilus/ Rhamnosus (Culturelle) 1 cap BID PO Last administered on 11/30/18at 08:49; Admin Dose 1 CAP; Start 11/27/18 at 21:00 Atorvastatin Calcium (Lipitor) 20 mg QHS PO Last administered on 11/29/18at 21:05; Admin Dose 20 MG; Start 11/28/18 at 21:00 Duloxetine HCl (Cymbalta) 30 mg DAILY PO Last administered on 11/30/18at 08:49; Admin Dose 30 MG; Start 11/28/18 at 09:00 Pregabalin (Lyrica) 100 mg DAILY PO Last administered on 11/30/18at 08:50; Admin Dose 100 MG; Start 11/28/18 at 09:00 Lisinopril (Zestril) 10 mg DAILY PO Last administered on 11/30/18at 08:50; Admin Dose 10 MG; Start 11/27/18 at 22:30 Hydralazine HCl (Apresoline) 10 mg Q4H PRN IV sbp >160mmHg; Start 11/28/18 at 02:00 Hydrocortisone (Hydrocortisone 2.5% Cr) 1 applic BID PRN TOP itching; Start 11/28/18 at 02:00 Diphenhydramine HCl (Benadryl) 25 mg Q6H PRN PO ITCHING Last administered on 11/30/18 06:29; Admin Dose 25 MG; Start 11/28/18 at 04:00 Metoprolol Succinate (Toprol Xl) 25 mg DAILY PO Last administered on 11/30/18 08:50; Admin Dose 25 MG; Start 11/28/18 at 14:00 Insulin Glargine (Lantus) 9 units DAILY@2000 SC Last administered on 11/29/18 21:11; Admin Dose 9 UNITS; Start 11/28/18 at 20:00 Insulin Aspart (Novolog Insulin Pen) NOVOLOG *MILD* ALGORITHM WITH MEALS BEDTIME SC Last administered on 11/30/18 12:52; Admin Dose 2 UNIT; Start 11/28/18 at 21:00 Acetaminophen/ Hydrocodone Bitart ([place] (5/325)) 1 tab Q4H PRN PO MODERATE PAIN LEVEL 4-6 Last administered on 11/30/18 10:18; Admin Dose 1 TAB; Start 11/29/18 at 01:30 Insulin Aspart (Novolog Insulin Pen) 3 unit AC MEALS SC Last administered on 11/30/18 12:52; Admin Dose 3 UNIT; Start 11/29/18 at 11:10 Levothyroxine Sodium (Synthroid) 75 mcg DAILY@06 PO Last administered on 11/30/18 06:23; Admin Dose 75 MCG; Start 11/30/18 at 06:00 BLANCA CHAHAL NP Nov 30, 2018 13:13
[2018-11-30] MEDS ORDERED: VANCOMYCIN IV PER PHARMACY XX SCH (13:30)
[2018-11-30] MEDS: CEFTRIAXONE 2 GM/50 ML (PMX) 50 ML IVPB SCH (14:26)
--- NOTE | 2018-11-30 14:29 | PN ---
Date/Time of Note Date/Time of Note DATE: 11/30/18 TIME: 14:27 Assessment/Plan VTE Prophylaxis Risk score (from Ns)>0 risk: 8 SCD applied (from [facility] [place]): No SCD contraindicated: low risk/ambulating Pharmacological prophylaxis: NA/contraindicated, LMWH Pharm contraindication: low risk/ambulating Lines/Catheters [facility] [place] Assessment/Plan Hospital Course A/P 1. Left foot cellulitis/ abscess, has hardware, probable too early for OM. Stable cont antibiotics. Will order PICC 2. Left foot bunion, apparently the bones have shifted. SP I&D; follow-up on cultures, home soon probably on Rocephin 3. Type 2 diabetes [8.9]/ metabolic syndrome, not at goal. Home on insulin 4. Hypertension 5. Dyslipidemia 6. Tobacco abuse sp counseling, offered patch 7. PAD? 8. Diabetic neuropathy 9. ELVI risk 10. Obesity 11. Nonadherence 12. Marijuana S: 11/27: No events noted 11/28: no distress; no cp/ dyspnea 11/29: no events 11/30: No events. Family requested mattress to be changed. Wants to go home. No fever diarrhea O: Vital signs stable PE No pallor Regular Clear Benign, overweight Left foot c/d/i Result Diagram: 11/29/18 0800 11/29/18 0800 Results 24hrs Laboratory Tests Test 11/29/18 17:55 11/29/18 21:04 11/30/18 02:10 11/30/18 08:47 Bedside Glucose 170 157 154 Urine Color STRAW Urine Clarity CLEAR Urine pH 6.0 Urine Specific 1.005 [place] Urine Ketones NEGATIVE Urine Nitrite NEGATIVE Urine Bilirubin NEGATIVE Urine Urobilinogen NEGATIVE Urine Leukocyte NEGATIVE Esterase Urine Hemoglobin NEGATIVE Urine Glucose NEGATIVE Urine Total Protein NEGATIVE Test 11/30/18 12:40 Bedside Glucose 186 Exam/Review of Systems Exam Vitals Vital Signs Date Temp Pulse Resp B/P (MAP) Pulse Ox O2 O2 Flow FiO2 Time Delivery Rate 11/30/18 98.7 56 16 149/66 97 07:56 (93) 11/30/18 Room Air 02:15 Intake and Output 11/29/18 11/29/18 11/30/18 1515:00 23:00 07:00 IntakeIntake Total 1100 ml 680 ml 280 ml OutputOutput Total 450 ml BalanceBalance 650 ml 680 ml 280 ml Results Results 24hrs Laboratory Tests Test 11/29/18 17:55 11/29/18 21:04 11/30/18 02:10 11/30/18 08:47 Bedside Glucose 170 157 154 Urine Color STRAW Urine Clarity CLEAR Urine pH 6.0 Urine Specific 1.005 [place] Urine Ketones NEGATIVE Urine Nitrite NEGATIVE Urine Bilirubin NEGATIVE Urine Urobilinogen NEGATIVE Urine Leukocyte NEGATIVE Esterase Urine Hemoglobin NEGATIVE Urine Glucose NEGATIVE Urine Total Protein NEGATIVE Test 11/30/18 12:40 Bedside Glucose 186 Medications Medication Current Medications IV Flush (NS 3 ml) 3 ml PER PROTOCOL IV ; Start 11/27/18 at 02:00 Ondansetron HCl (Zofran Inj) 4 mg Q6H PRN IV NAUSEA/VOMITING; Start 11/27/18 at 02:00 Morphine Sulfate (morphine) 2 mg Q4H PRN IV .PAIN 7-10 Last administered on 11/27/18at 21:21; Admin Dose 2 MG; Start 11/27/18 at 02:00 Diagnostic Test (Pha) (Accu-Chek) 1 ea 02 XX ; Start 11/28/18 at 02:00 Miscellaneous Information 1 ea NOTE XX ; Start 11/27/18 at 02:30 Glucose (Glutose) 15 gm Q15M PRN PO DECREASED GLUCOSE; Start 11/27/18 at 02:30 Glucose (Glutose) 22.5 gm Q15M PRN PO DECREASED GLUCOSE; Start 11/27/18 at 02:30 Dextrose (D50w Syringe) 25 ml Q15M PRN IV DECREASED GLUCOSE; Start 11/27/18 at 02:30 Dextrose (D50w Syringe) 50 ml Q15M PRN IV DECREASED GLUCOSE; Start 11/27/18 at 02:30 Glucagon (Glucagen) 1 mg Q15M PRN IM DECREASED GLUCOSE; Start 11/27/18 at 02:30 Glucose (Glutose) 15 gm Q15M PRN BUCCAL DECREASED GLUCOSE; Start 11/27/18 at 02:30 Enoxaparin Sodium (Lovenox) 40 mg DAILY SC Last administered on 11/30/18at 08:51; Admin Dose 40 MG; Start 11/28/18 at 09:00 Famotidine (Pepcid) 20 mg HS PO Last administered on 11/29/18at 21:05; Admin Dose 20 MG; Start 11/27/18 at 21:00 Lactobacillus Acidophilus/ Rhamnosus (Culturelle) 1 cap BID PO Last administered on 11/30/18 08:49; Admin Dose 1 CAP; Start 11/27/18 at 21:00 Atorvastatin Calcium (Lipitor) 20 mg QHS PO Last administered on 11/29/18 21:05; Admin Dose 20 MG; Start 11/28/18 at 21:00 Duloxetine HCl (Cymbalta) 30 mg DAILY PO Last administered on 11/30/18 08:49; Admin Dose 30 MG; Start 11/28/18 at 09:00 Pregabalin (Lyrica) 100 mg DAILY PO Last administered on 11/30/18 08:50; Admin Dose 100 MG; Start 11/28/18 at 09:00 Lisinopril (Zestril) 10 mg DAILY PO Last administered on 11/30/18 08:50; Admin Dose 10 MG; Start 11/27/18 at 22:30 Hydralazine HCl (Apresoline) 10 mg Q4H PRN IV sbp >160mmHg; Start 11/28/18 at 02:00 Hydrocortisone (Hydrocortisone 2.5% Cr) 1 applic BID PRN TOP itching; Start 11/28/18 at 02:00 Diphenhydramine HCl (Benadryl) 25 mg Q6H PRN PO ITCHING Last administered on 11/30/18 06:29; Admin Dose 25 MG; Start 11/28/18 at 04:00 Metoprolol Succinate (Toprol Xl) 25 mg DAILY PO Last administered on 11/30/18 08:50; Admin Dose 25 MG; Start 11/28/18 at 14:00 Insulin Glargine (Lantus) 9 units DAILY@2000 SC Last administered on 11/29/18 21:11; Admin Dose 9 UNITS; Start 11/28/18 at 20:00 Insulin Aspart (Novolog Insulin Pen) NOVOLOG *MILD* ALGORITHM WITH MEALS BEDTIME SC Last administered on 11/30/18 12:52; Admin Dose 2 UNIT; Start 11/28/18 at 21:00 Acetaminophen/ Hydrocodone Bitart ([place] (5/325)) 1 tab Q4H PRN PO MODERATE PAIN LEVEL 4-6 Last administered on 2/17/19at 10:18; Admin Dose 1 TAB; Start 11/29/18 at 01:30 Insulin Aspart (Novolog Insulin Pen) 3 unit AC MEALS SC Last administered on 11/30/18at 12:52; Admin Dose 3 UNIT; Start 11/29/18 at 11:10 Levothyroxine Sodium (Synthroid) 75 mcg DAILY@06 PO Last administered on 11/30/18at 06:23; Admin Dose 75 MCG; Start 11/30/18 at 06:00 Vancomycin HCl (Vanco Iv Per Pharmacy) VANCOMYCIN PER PHARMACY PER PROTOCOL XX ; Start 11/30/18 at 13:30 Ceftriaxone Sodium 50 ml @ 100 mls/hr Q24H IVPB Last administered on 11/30/18at 14:26; Admin Dose 100 MLS/HR; Start 11/30/18 at 15:00 Vancomycin HCl 2 gm/Sodium Chloride 500 ml @ 125 mls/hr 1530 IVPB ; Start 11/30/18 at 15:30; Stop 11/30/18 at 23:00 Docusate Sodium (Colace) 100 mg BID PRN PO CONSTIPATION; Start 11/30/18 at 14:30; Status LOC DOMINGO MD Nov 30, 2018 14:29
[2018-11-30] MEDS ORDERED: DOCUSATE SODIUM 100 MG CAP PO PRN (14:30)
[2018-11-30 14:51] VITALS: BP 114/58; PULSE 66; RESP 18
[2018-11-30] MEDS ORDERED: VANCOMYCIN HCL 2 GM in SOD CHLORIDE 0.9% 500 ML IVPB SCH (15:30)
[2018-11-30 20:43] VITALS: BP 117/64; PULSE 66; RESP 18
[2018-11-30] MEDS: FAMOTIDINE 20 MG TAB PO SCH (20:52)
[2018-11-30] MEDS: ATORVASTATIN 20 MG TAB PO SCH (20:52)
[2018-11-30] MEDS: INSULIN GLARGINE [LANTus] (100 UNITS/ML) SYG SC SCH (20:53)
--- NOTE | 2018-11-30 23:49 | PN ---
Date/Time of Note Date/Time of Note DATE: 11/30/18 TIME: 23:49 Assessment/Plan Lines/Catheters IV Catheter Type (from [facility]): PICC Line Assessment/Plan Chief Complaint/Hosp Course -Awaiting vascular arterial ultrasound Subjective 24 Hr Interval Summary Constitutional: no complaints Exam/Review of Systems Vital Signs Vitals Exam Free Text/Dictation GENERAL: Alert and oriented x3, in no apparent distress. HEENT: Normocephalic, atraumatic. Mucosa moist. NECK: Supple, no carotid bruit. PULMONARY: Clear to auscultation bilaterally. No crackles. CARDIOVASCULAR: S1, S2 present. No murmurs. ABDOMEN: Soft, nontender, nondistended. Bowel sounds positive. Large truncal obesity. EXTREMITIES: -Right lower extremity palpable femoral pulse, nonpalpable pedal pulse. Motor and sensory intact. Cap refill 3 seconds. -Left lower extremity palpable femoral pulse, nonpalpable pedal pulse. Motor and sensory intact. Cap refill 3 to 4 seconds. Cellulitis of the forefoot and first toe wound with drainage with purulence. ANALILIA GALLO MD Nov 30, 2018 23:49
[2018-12-01] MEDS: ACCU-CHEK XX SCH (02:00)
[2018-12-01 02:13] VITALS: BP 134/74; PULSE 71; RESP 18
[2018-12-01] MEDS: LEVOTHYROXINE 75 MCG TAB PO SCH (05:18)
[2018-12-01] MEDS: VANCOMYCIN HCL 1.25 GM in SOD CHLORIDE 0.9% 250 ML IVPB SCH ×2 (05:18→17:08)
[2018-12-01 07:59] VITALS: BP_SYST 139; BP_DIAS 40; BP_DIAS 98; PULSE 65; RESP 19
[2018-12-01] MEDS: DULOXETINE 30 MG CAP DR PO SCH (08:59)
[2018-12-01] MEDS: LACTOBACILLUS RHAMNOSUS CAP PO SCH ×2 (08:59→21:08)
[2018-12-01] MEDS: PREGABALIN 100 MG CAP PO SCH (09:00)
[2018-12-01] MEDS: METOPROLOL (XL) 25 MG TAB PO SCH (09:00)
[2018-12-01] MEDS: HYDROCODONE/APAP (5/325) TAB PO PRN ×2 (09:00→21:13)
[2018-12-01] MEDS: LISINOPRIL 10 MG TAB PO SCH (09:00)
[2018-12-01] MEDS: ENOXAPARIN 40 MG/0.4 ML SYG SC SCH (09:01)
[2018-12-01] MEDS: INSULIN ASPART [NOVOLOG] 3 ML PEN SC SCH ×7 (09:01→21:00)
--- NOTE | 2018-12-01 09:24 | PN ---
Assessment/Plan VTE Prophylaxis Risk score (from Nsg)>0 risk: 9 Lines/Catheters IV Catheter Type (from Nrs): PICC Line Assessment/Plan Result Diagram: 12/01/18 0449 12/01/189 Results 24hrs Exam/Review of Systems Exam Vitals Medications Medication WICHO FOSTER NP Dec 01, 2018 09:24
--- NOTE | 2018-12-01 10:49 | CONS ---
Assessment/Plan Assessment/Plan Hospital Course (Demo Recall) ID PROGRESS NOTE CURRENT ABX: DAY # > Vanco IV + Ceftriaxone S/P Zosyn 12/01/18 0449 12/01/18 0449 24H INTERVAL SUMMARY * DC Planning in process -- Home today w/IV ABX * Obese F sitting up in bed, no fevers, VSS, NAD, left foot DSG C/D/I, pain is adequately controlled w/PO paim meds * POD #3 -> S/P left foot I&D w/bunionectomy revision * 11/30/18 CXR: IMPRESSION:1. Elevation right hemidiaphragm with patchy right lower lobe airspace opacity which may represent infiltrate or atelectasis. 2. Right PICC line catheter in place. * 11/28/18 CXR: IMPRESSION:Mild diffuse interstitial lung disease with central peribronchial thickening, mild pulmonary edema versus interstitial pneumonitis with peribronchial inflammation. MICRO * 11/29/18 MRSA NARES (-) MRSA SCREEN Final No methicillin resistant staphylococcus aureus isolated * 11/28/18 WOUND CX: ANAEROBIC CULTURE Preliminary NO GROWTH AFTER 2 DAYS * Microbiology GRAM STAIN Final POLYMORPH. LEUKOCYTE NONE SEEN . NO ORGANISM SEEN WOUND CULTURE Final No growth after 3 days PHYSICAL EXAMINATION: GENERAL: Afebrile, VSS, obese HEENT: AT, NC, anicteric NECK: Grossly normal CHEST: Equal chest rise bilaterally = without dyspnea HEART: Pulse RRR ABDOMEN: Soft / ND EXTREMITIES: Warm, left foot ACEI wrap DSG C/D/I SKIN: No rash, no diaphoresis ID ASSESSMENT 62 yo F admit with: POD#2 -> s/p 11/28/18 Incision and debridement of the left foot/Revision bunionectomy of the left foot/Posterior splint left LE 1. Left foot cellulitis/ abscess, has hardware, probable too early for OM * ESR @ 27 = NOT compelling for bone infection; yet at risk due to (+)DM surgery x2 w/hardware replacement 2. Left foot bunion - s/p revision w/hardware replacement 11/28/18 * 11/19/18 PATHO REPORT: MICROSCOPIC DIAGNOSIS:Bone segments of left foot, correction of bunion:-- Segments of cancellous bone, partially covered by focally degenerative hyaline cartilage, compatible with a bunion deformity. 3. Type 2 diabetes [8.9]/ metabolic syndrome 4. Hypertension 5. Dyslipidemia 6. Tobacco abuse sp counseling, offered patch 7. PAD? 8. Diabetic neuropathy 9. ELVI risk 10. Obesity 11. Nonadherence 12. Marijuana ABX ALLERGIES: KNDA INVASIVES: PICC LUEXT CURRENT ABX: DAY # => Vanco IV + Ceftriaxone s/p Zosyn ID RECOMMENDATIONS/PLAN: 1. PLAN: may DC on Vanco IV + Ceftriaxone -- complete 28 day course from 11/28/[address] EDEN ABX DISCHARGE RECS: When cleared by primary for DC home, patient may DC home on the followin. PICC Line Care per protocol 2. Vancomycin 1 GM IV Q24H with continued dose per outpatient pharmacist to complete 26 days 3. Ceftriaxone 2GM IVPB daily x 26 days . Consultation Date/Type/Reason Admit Date/Time Nov 27, 2018 at 09:08 Initial Consult Date 11/27/18 Date/Time of Note DATE: 12/01/18 TIME: 10:41 Exam/Review of Systems Exam Vitals Vital Signs Date Temp Pulse Resp B/P (MAP) Pulse Ox O2 O2 Flow FiO2 Time Delivery Rate 12/01/18 98.7 65 19 139/98 92 07:59 (112) 12/01/18 Room Air 02:13 Intake and Output 11/30/18 11/30/18 12/01/18 1515:00 23:00 07:00 IntakeIntake Total 50 ml 1050 ml 300 ml BalanceBalance 50 ml 1050 ml 300 ml Results Result Diagram: 12/01/18 0449 12/01/18 0449 Results 24hrs Laboratory Tests Test 11/30/18 12:40 11/30/18 17:36 11/30/18 20:50 12/01/18 04:49 Bedside Glucose 186 150 159 White Blood Count 13.1 H Red Blood Count 5.52 H Hemoglobin 14.7 Hematocrit 46.8 Mean Corpuscular 84.8 Volume Mean Corpuscular 26.6 L Hemoglobin Mean Corpuscular 31.4 L Hemoglobin Concent Red Cell 15.4 H Distribution Width Platelet Count 313 Mean Platelet Volume 12.0 H Immature 0.700 H Granulocytes % Neutrophils % 66.4 Lymphocytes % 23.2 Monocytes % 6.0 Eosinophils % 3.1 Basophils % 0.6 Nucleated Red Blood 0.0 Cells % Immature 0.090 H Granulocytes # Neutrophils # 8.7 H Lymphocytes # 3.0 H Monocytes # 0.8 Eosinophils # 0.4 Basophils # 0.1 Nucleated Red Blood 0.0 Cells # Sodium Level 141 Potassium Level 4.0 Chloride Level 105 Carbon Dioxide Level 28 Anion Gap 8 Blood Urea Nitrogen 12 Creatinine 0.62 Est Glomerular > 60 Filtrat Rate mL/min Glucose Level 146 # Calcium Level 9.8 Total Bilirubin 0.7 Direct Bilirubin 0.00 Indirect Bilirubin 0.7 Aspartate Amino 22 Transf (AST/SGOT) Alanine 12 L Aminotransferase (AL T/SGPT) Alkaline Phosphatase 144 H Total Protein 7.0 Albumin 3.8 Globulin 3.20 Albumin/Globulin 1.18 Ratio Test 12/01/18 08:55 Bedside Glucose 190 Medications Medication Current Medications IV Flush (NS 3 ml) 3 ml PER PROTOCOL IV ; Start 11/27/18 at 02:00 Ondansetron HCl (Zofran Inj) 4 mg Q6H PRN IV NAUSEA/VOMITING; Start 11/27/18 at 02:00 Morphine Sulfate (morphine) 2 mg Q4H PRN IV .PAIN 7-10 Last administered on 11/27/18at 21:21; Admin Dose 2 MG; Start 11/27/18 at 02:00 Diagnostic Test (Pha) (Accu-Chek) 1 ea 02 XX ; Start 11/28/18 at 02:00 Miscellaneous Information 1 ea NOTE XX ; Start 11/27/18 at 02:30 Glucose (Glutose) 15 gm Q15M PRN PO DECREASED GLUCOSE; Start 11/27/18 at 02:30 Glucose (Glutose) 22.5 gm Q15M PRN PO DECREASED GLUCOSE; Start 11/27/18 at 02:30 Dextrose (D50w Syringe) 25 ml Q15M PRN IV DECREASED GLUCOSE; Start 11/27/18 at 02:30 Dextrose (D50w Syringe) 50 ml Q15M PRN IV DECREASED GLUCOSE; Start 11/27/18 at 02:30 Glucagon (Glucagen) 1 mg Q15M PRN IM DECREASED GLUCOSE; Start 11/27/18 at 02:30 Glucose (Glutose) 15 gm Q15M PRN BUCCAL DECREASED GLUCOSE; Start 11/27/18 at 02:30 Enoxaparin Sodium (Lovenox) 40 mg DAILY SC Last administered on 12/01/18 09:01; Admin Dose 40 MG; Start 11/28/18 at 09:00 Famotidine (Pepcid) 20 mg HS PO Last administered on 11/30/18 20:52; Admin Dose 20 MG; Start 11/27/18 at 21:00 Lactobacillus Acidophilus/ Rhamnosus (Culturelle) 1 cap BID PO Last administ ered on 12/01/18 08:59; Admin Dose 1 CAP; Start 11/27/18 at 21:00 Atorvastatin Calcium (Lipitor) 20 mg QHS PO Last administered on 11/30/18 20:52; Admin Dose 20 MG; Start 11/28/18 at 21:00 Duloxetine HCl (Cymbalta) 30 mg DAILY PO Last administered on 12/01/18 08:59; Admin Dose 30 MG; Start 11/28/18 at 09:00 Pregabalin (Lyrica) 100 mg DAILY PO Last administered on 12/01/18 09:00; Admin Dose 100 MG; Start 11/28/18 at 09:00 Lisinopril (Zestril) 10 mg DAILY PO Last administered on 12/01/18 09:00; Admin Dose 10 MG; Start 11/27/18 at 22:30 Hydralazine HCl (Apresoline) 10 mg Q4H PRN IV sbp >160mmHg; Start 11/28/18 at 02:00 Hydrocortisone (Hydrocortisone 2.5% Cr) 1 applic BID PRN TOP itching; Start 11/28/18 at 02:00 Diphenhydramine HCl (Benadryl) 25 mg Q6H PRN PO ITCHING Last administered on 11/30/18 22:54; Admin Dose 25 MG; Start 11/28/18 at 04:00 Metoprolol Succinate (Toprol Xl) 25 mg DAILY PO Last administered on 12/01/18 09:00; Admin Dose 25 MG; Start 11/28/18 at 14:00 Insulin Glargine (Lantus) 9 units DAILY@2000 SC Last administered on 11/30/18 20:53; Admin Dose 9 UNITS; Start 11/28/18 at 20:00 Insulin Aspart (Novolog Insulin Pen) NOVOLOG *MILD* ALGORITHM WITH MEALS BEDTIME SC Last administered on 12/01/18 09:02; Admin Dose 2 UNIT; Start 11/28/18 at 21:00 Acetaminophen/ Hydrocodone Bitart ([place] (5/325)) 1 tab Q4H PRN PO MODERATE PAIN LEVEL 4-6 Last administered on 12/01/18at 09:00; Admin Dose 1 TAB; Start 11/29/18 at 01:30 Insulin Aspart (Novolog Insulin Pen) 3 unit AC MEALS SC Last administered on 12/01/18at 09:01; Admin Dose 3 UNIT; Start 11/29/18 at 11:10 Levothyroxine Sodium (Synthroid) 75 mcg DAILY@06 PO Last administered on 12/01/18 05:18; Admin Dose 75 MCG; Start 11/30/18 at 06:00 Vancomycin HCl (Vanco Iv Per Pharmacy) VANCOMYCIN PER PHARMACY PER PROTOCOL XX ; Start 11/30/18 at 13:30 Ceftriaxone Sodium 50 ml @ 100 mls/hr Q24H IVPB Last administered on 11/30/18at 14:26; Admin Dose 100 MLS/HR; Start 11/30/18 at 15:00 Docusate Sodium (Colace) 100 mg BID PRN PO CONSTIPATION; Start 11/30/18 at 14:30 Vancomycin HCl 1.25 gm/Sodium Chloride 250 ml @ 83.333 mls/ hr Q12H IVPB Last administered on 12/01/18at 05:18; Admin Dose 83.333 MLS/HR; Start 12/01/18 at 05:00 BLANCA CHAHAL NP Dec 01, 2018 10:49
[2018-12-01 15:05] VITALS: BP 121/62; PULSE 67; RESP 19
[2018-12-01] MEDS: CEFTRIAXONE 2 GM/50 ML (PMX) 50 ML IVPB SCH (15:24)
--- NOTE | 2018-12-01 17:06 | PDOCDIS ---
Discharge Instructions CONDITION [id number] Patient Condition: [id number] Stable HOME CARE INSTRUCTIONS: [id number] Diet Instructions: [id number] diabetic diet ACTIVITY: [id number] Activity Restrictions: [id number] Slowly Increase Activity Rest between Activity Avoid heavy lifting Do not Drive No Weight Bearing [id number] Bathing Restrictions: [id number] waterproof surgical site at all times [id number] Activity Restrictions [id number] No weight bearing to left leg Comment: FOLLOW UP/APPOINTMENTS Follow-up Plan [facility] Specialty: Podiatry Office Address [facility] [id number] [address] Office REFERRALS [id number] Agency Name and Phone [address] [facility] (IV infusion) 800 Number: [phone] OTHER ORDERS: Other Orders: 1. Take medications as per prescription. Start taking the new dose of insulin. 2. Take a low carbohydrate diet. 3. No weightbearing on the left lower extremity. 4. Follow-up with as scheduled on 12/03/2018. 5. Please go to the nearest emergency room if he has significant foot pain despite taking pain medications, persistent fevers, or any other unusual signs/symptoms. WICHO FOSTER NP Dec 01, 2018 17:06
--- NOTE | 2018-12-01 17:36 | DS ---
Date/Time of Note Date/Time of Note DATE: 12/01/18 TIME: 17:34 Discharge Summary Admission/Discharge Info Admit Date/Time Nov 27, 2018 at 09:08 Discharge Date/Time Discharge Diagnosis 1. Left foot infection status post bunionectomy of the left foot. Status post incision and debridement of the left foot with revision of bunionectomy on 11/28/2018. 2. Type 2 diabetes mellitus. Hemoglobin A1c 8.9. 3. Essential hypertension. 4. Hypothyroidism. 5. Diabetic neuropathy. 6. Dyslipidemia. 7. Morbid obesity. BMI more than 51 kg/m. 8. Noncompliance. Patient Condition: Stable Consults 1. Saul Calvo DPM, Podiatry. 2. Mehdi Bernstein MD, Vascular Surgery. 3. Alirio Badillo MD, Infectious Diseases. Procedures Date/Time of Note Date/Time of Note DATE: 11/28/18 TIME: 17:31 Post procedure note Operative Report Preoperative Diagnosis Left foot infection S/P bunionectomy of the left foot History of non compliance Diabetes mellitus Peripheral neuropathy Postoperative Diagnosis Left foot infection S/P bunionectomy of the left foot History of non compliance Diabetes mellitus Peripheral neuropathy Operation/Procedure Performed Incision and debridement of the left foot Revision bunionectomy of the left foot Posterior splint left LE B/L LE Arterial Study IMPRESSION: 1. Right lower extremity: Negative for hemodynamically significant stenosis of the major arteries of the right lower extremity. Calf arteries are patent where imaged. 2. Left lower extremity: Negative for hemodynamically significant stenosis of the major arteries of the left lower extremity. Calf arteries could not be evaluated due to overlying bandages. Hx of Present Illness This is a 62-year-old female with comorbidities including diabetes mellitus, hypothyroidism, dyslipidemia, hypertension, and morbid obesity. The patient had a recent bunionectomy of the left foot. The patient developed ulceration of the left foot and had deformity of the operative site after the patient put weight on the left foot despite the surgeon's advice. She was told to go to the emergency room for further evaluation. Hospital Course The patient was admitted to inpatient setting. The patient was started on [facility] antimicrobials. The patient underwent an incision and debridement of left foot with revision of bunionectomy on 11/28/2018. The patient was maintained on antimicrobials as per infectious diseases. The patient needs long-term antibiotics. Therefore, a PICC line was inserted and the patient will be continued on antibiotics to complete a course of 28 days. The patient was ins tructed multiple times on the importance of nonweightbearing on the left lower extremity. The patient was evaluated by physical therapy and was instructed on nonweightbearing on the left lower extremity. The patient was also evaluated by vascular surgery for any vascular compromise that is causing infection in the left lower extremity. The patient underwent a bilateral lower extremity arterial Doppler study that was negative for any hemodynamically significant stenosis of the major arteries of bilateral lower extremities. The patient's chronic problems include type 2 diabetes mellitus. The patient's hemoglobin A1c was found to be 8.9. She was continued on sliding scale insulin along with basal insulin. Upon discharge, the patient will be continued on B asaglar and Lispro insulin. The patient was evaluated by cut in station operator. The patient was maintained on antihypertensives for her underlying hypertension. She was maintained on Synthroid for her hypothyroidism. The patient was maintained on gabapentin for her diabetic neuropathy. The patient has dyslipidemia. The patient was maintained on statins for the same. The patient was noticed to be morbidly obese with a BMI of 51.. Patient was advised on weight reduction. The patient had a stable hospital course. The patient was evaluated by the surgeon status post surgery. The patient was reinforced on nonweightbearing of the left lower extremity. Home health was arranged for home IV antibiotic therapy with IV ceftriaxone and vancomycin. The patient was given all the DME recommended by physical therapy. Discharge Instructions 1. Take medications as per prescription. Start taking the new dose of insulin. 2. Take a low carbohydrate diet. 3. No weightbearing on the left lower extremity. 4. Follow-up with as scheduled on 12/03/2018. 5. Please go to the nearest emergency room if you have significant foot pain despite taking pain medications, persistent fevers, or any other unusual signs/symptoms. The patient verbalized understanding of her discharge instructions. At this time I would like to thank all the consultants for seeing the patient, doing the necessary procedures, and providing clinical recommendations. The patient was seen in collaboration with Dr. Muir. Home Meds Reported Medications Insulin Lispro (Humalog Kwikpen U-100) 100 Unit/1 Ml Insuln.pen, 25 UNIT SQ AC A, EA 11/19/18 Ergocalciferol (Vitamin D2) (VITAMIN D2) 50,000 Unit Capsule, 52155 UNIT PO EVERY SATURDAY, CAP 11/19/18 Duloxetine Hcl* (Duloxetine Hcl*) 30 Mg Capsule.dr, 30 MG PO DAILY, #30 CAP 11/19/18 Pregabalin* (Lyrica*) 100 Mg Capsule, 100 MG PO BID, CAP 11/19/18 Thyroid* ([place] Thyroid*) 90 Mg Tablet, 90 MG PO DAILY, TAB 11/19/18 Atorvastatin Calcium* (Atorvastatin Calcium*) 20 Mg Tablet, 20 MG PO QHS, #30 TAB 11/19/18 Lisinopril* (Lisinopril*) 10 Mg Tablet, 10 MG PO DAILY, #30 TAB 11/19/18 Follow-up Plan Saul Calvo DPM Specialty: Podiatry Office Address [facility] [id number] [address] Office Primary Care Provider [facility] Time spent on discharge: > 30 minutes Pending Labs Laboratory Tests Test 11/30/18 17:36 11/30/18 20:50 12/01/18 04:49 12/01/18 08:55 Bedside 150 159 190 Glucose mg/dL (70-220) mg/dL (70-220) mg/dL (70-220) White Blood 13.1 Count 10^3/ul (4.8-1 0.8) Red Blood 5.52 Count 10^6/ul (4.20- 5.40) Hemoglobin 14.7 g/dl (12.0-16. 0) Hematocrit 46.8 % (37.0-47.0) Mean 84.8 Corpuscular fl (82.0-101.0 Volume ) Mean 26.6 Corpuscular pg (29.0-33.0) Hemoglobin Mean 31.4 Corpuscular g/dl (32.0-37. Hemoglobin Conc 0) ent Red Cell 15.4 Distribution % (11.5-14.5) Width Platelet Count 313 10^3/UL (140-4 15) Mean Platelet 12.0 Volume fl (7.4-10.4) Immature 0.700 Granulocytes % % (0.001-0.429 ) Neutrophils % 66.4 % (39.0-77.0) Lymphocytes % 23.2 % (15.0-51.0) Monocytes % 6.0 % (0.0-11.0) Eosinophils % 3.1 % (0.0-7.0) Basophils % 0.6 % (0.0-2.0) Nucleated Red 0.0 Blood Cells % /100WBC (0.0-0 .0) Immature 0.090 Granulocytes # 10^3/ul (0.0-0 .031) Neutrophils # 8.7 10^3/ul (1.6-7 .5) Lymphocytes # 3.0 10^3/ul (0.8-2 .9) Monocytes # 0.8 10^3/ul (0.3-0 .9) Eosinophils # 0.4 10^3/ul (0.0-0 .5) Basophils # 0.1 10^3/ul (0.0-0 .1) Nucleated Red 0.0 Blood Cells # 10^3/ul (0.0-0 .0) Sodium Level 141 mmol/L (135-14 4) Potassium 4.0 Level mmol/L (3.5-5. 1) Chloride Level 105 mmol/L (97-110 ) Carbon Dioxide 28 Level mmol/L (21-31) Anion Gap 8 (5-13) Blood Urea 12 Nitrogen mg/dl (7-20) Creatinine 0.62 mg/dl (0.44-1. 00) Est Glomerular > 60 Filtrat mL/min (>60) Rate mL/min Glucose Level 146 mg/dl (70-220) Calcium Level 9.8 mg/dl (8.4-10. 2) Total 0.7 Bilirubin mg/dl (0.2-1.3 ) Direct 0.00 Bilirubin mg/dl (0.00-0. 20) Indirect 0.7 Bilirubin mg/dl (0-1.1) Aspartate Amino 22 Transf (AST/SGO IU/L (15-46) T) Alanine 12 Aminotransferas IU/L (13-69) e (ALT/SGPT) Alkaline 144 Phosphatase IU/L (42-121) Total Protein 7.0 g/dl (6.1-8.1) Albumin 3.8 g/dl (3.3-4.9) Globulin 3.20 g/dl (1.3-3.2) Albumin/Globuli 1.18 n Ratio Test 12/01/18 13:11 Bedside 189 Glucose mg/dL (70-220) WICHO FOSTER NP Dec 01, 2018 17:36
[2018-12-01 19:38] VITALS: BP 136/72; PULSE 67; RESP 18
[2018-12-01] MEDS: FAMOTIDINE 20 MG TAB PO SCH (21:00)
[2018-12-01] MEDS: ATORVASTATIN 20 MG TAB PO SCH (21:08)
[2018-12-01] MEDS: INSULIN GLARGINE [LANTus] (100 UNITS/ML) SYG SC SCH (21:12)
== END 2018-12-01 21:30 | disposition home health service (06) | DRG 857 ==
LOC: E/R 20:15 → MS1 11-27 01:56 → OBSVTOIN 11-27 09:08
PROVIDERS: ADMIT Internal Medicine; ATTEND Internal Medicine
PROC: 0QBP0ZZ Excision of Left Metatarsal, Open Approach (ICD-10-PCS; principal; 2018-11-28 16:00)
PROC: 02HV33Z Insertion of Infusion Device into Superior Vena Cava, Percutaneous Approach (ICD-10-PCS; 2018-11-30)
DX: T81.41XA Infection following a procedure, superficial incisional surgical site, initial encounter (principal); L03.116 Cellulitis of left lower limb; Z68.43 Body mass index [BMI] 50.0-59.9, adult; L02.612 Cutaneous abscess of left foot; E11.51 Type 2 diabetes mellitus with diabetic peripheral angiopathy without gangrene; I70.245 Atherosclerosis of native arteries of left leg with ulceration of other part of foot; L97.529 Non-pressure chronic ulcer of other part of left foot with unspecified severity; I70.201 Unspecified atherosclerosis of native arteries of extremities, right leg; M21.42 Flat foot [pes planus] (acquired), left foot; M21.612 Bunion of left foot; E11.42 Type 2 diabetes mellitus with diabetic polyneuropathy; E66.01 Morbid (severe) obesity due to excess calories; E88.81 Metabolic syndrome and other insulin resistance; I10 Essential (primary) hypertension; F17.210 Nicotine dependence, cigarettes, uncomplicated; E78.5 Hyperlipidemia, unspecified; E03.9 Hypothyroidism, unspecified; Z79.4 Long term (current) use of insulin; Z91.19 Patient's noncompliance with other medical treatment and regimen; Y83.8 Other surgical procedures as the cause of abnormal reaction of the patient, or of later complication, without mention of misadventure at the time of the procedure
CPT/HCPCS: 36415; 36569; 71045; 76937; 80048; 80053; 81003; 82962; 83036; 83690; 84145; 84439; 84443; 84480; 85025; 85610; 85651; 85730; 86140; 87070; 87075; 87081; 87102; 88300; 93005; 93922; 97110; 97162; 97530; C1713; C9113; G0378; J0690; J0696; J1650; J1815; J2250; J2270; J2543; J3370; J7040; J7042; J7050